=== PATIENT | female | born 1950 | race Caucasian/White ===

== ENCOUNTER 2023-06-20 18:18 | Emergency (ER) | payer MEDICARE, SELFPAY ==
--- NOTE | 2023-06-20 18:22 | ED.GENADULT ---
HPI - General Adult General Chief complaint: Ear Stated complaint: Left Jaw Pain/Ear Pain Time Seen by Provider: 06/20/23 19:01 Source: patient, RN notes reviewed and old records reviewed Mode of arrival: ambulatory Limitations: no limitations History of Present Illness HPI narrative: 72-year-old female presents to the [facility] with complaints of left jaw and ear pain. Denies any chest pain, shortness of breath. Patient states that she lays on her left side, uses CPAP. States she has had this before head normally massage makes it better. Had taken diclofenac today. States yesterday she took ibuprofen Tried calling her dental provider who is not open today Patient denies any chest pain, shortness of breath. No radiation of pain, localized to anterior left ear, TMJ Onset (ago): day(s) (2 nights) Related Data Home Medications Medication Instructions Recorded Confirmed amlodipine 10 mg tablet 10 mg DIRECTED 06/20/23 06/20/23 duloxetine 60 mg capsule,delayed 60 mg PO DIRECTED 06/20/23 06/20/23 release lisinopril 40 mg tablet 40 mg DIRECTED 06/20/23 06/20/23 meloxicam 15 mg tablet 15 mg DIRECTED 06/20/23 06/20/23 montelukast 10 mg tablet 10 mg DIRECTED 06/20/23 06/20/23 Allergies Allergy/AdvReac Type Severity Reaction Status Date / Time No Known Allergies Allergy Verified 06/20/23 18:33 Review of Systems Review of Systems: All systems reviewed & are unremarkable except as noted in HPI and below Constitutional: Constitutional: Reports no additional constitutional complaints Eyes: Eyes: Reports no additional eye complaints ENT: Reports as per HPI and Reports other (left TMJ) Cardiovascular: Cardiovascular: Reports no additional cardiovascular complaints, Denies chest pain and Denies dyspnea Respiratory: Respiratory: Reports no additional respiratory complaints, Denies chest congestion, Denies cough and Denies dyspnea Gastrointestinal: Gastrointestinal: Reports no additional gastrointestinal complaints, Denies abdominal pain, Denies nausea and Denies vomiting Musculoskeletal: Musculoskeletal: Reports no additional musculoskeletal complaints Integumentary/Breasts: Skin/Breast: Reports system reviewed and no additional complaints, except as docu Neurologic: Reports system reviewed and no additional complaints, except as documented Psychiatric: Psychiatric: Reports no additional psychiatric complaints Allergic/Immunologic: Allergic/Immunologic: Reports no additional allergic/immunologic complaints PMFSH Comments At the time of my signature, I reviewed and agree with the nursing past medical, surgical, social, and family history. There is no relevant family history pertinent to the patient complaint. Exam Const: General: cooperative, healthy appearing, comfortable, no acute distress, well developed, alert and well nourished Nutritional Appearance: well nourished Orientation/consciousness: patient oriented x3 Limitations: no limitations HENMT: Head: normal to inspection Ears: hearing grossly normal bilaterally, external ears normal, EAC's normal and TM abnormal wth effusion serous bilateral Face/Nose/Sinus: Normal external nose present, Normal nares present, Normal nasal mucous membranes and turbinates present, normal facial exam and face symmetric Face and sinus: normal facial exam, sinuses nontender, face symmetric and no erythema Mouth: Yes Normal oral and palatal mucosa present, Yes lip normal, Yes tongue normal, Yes oropharynx normal, Yes moist mucous membranes and Yes abnormal TMJ (Left, tenderness to palpation, clicking with opening and closing) Teeth and gingiva: dentition normal and gingiva normal Throat: posterior oropharynx normal, uvula midline and no uvular edema Eyes: General: appearance normal, both eyes and all related structures Alignment and Position: alignment normal Periorbital: periorbital findings normal Pupils: Equal, round and reactive pupils present EOM: EOMs intact bila
[2023-06-20 18:34] VITALS: BP 155/85; PULSE 105; RESP 18; TEMP 37.5; O2SAT 99
== END 2023-06-20 19:15 | disposition home or self-care (01) ==
PROVIDERS: Emergency Provider Nurse Practitioner; PCP Internal Medicine
DX: M26.602 Left temporomandibular joint disorder, unspecified (principal); I10 Essential (primary) hypertension; J45.909 Unspecified asthma, uncomplicated; G47.33 Obstructive sleep apnea (adult) (pediatric)
CPT/HCPCS: 99213; G0463

== ENCOUNTER 2023-11-06 13:51 | Outpatient (CLI) | payer MEDICARE, SELFPAY ==
[2023-11-06 15:22] LABS: Urine Cotinine NEGATIVE
[2023-11-06 15:27] LABS: Albumin Level 4.3 g/dL (3.5-5.1); Anion Gap 10 mmol/L (4-12); Blood Urea Nitrogen 17 mg/dL (7-17); Calcium 9.8 mg/dL (8.4-10.2); Carbon Dioxide 30 mmol/L (22-30); Chloride 99 mmol/L (98-107); Estimated Glomerular Filt Rate > 60; Glucose 91 mg/dL (65-110); Potassium 4.4 mmol/L (3.4-5.0); Sodium 139 mmol/L (137-145)
[2023-11-06 15:30] LABS: Hemoglobin A1C 5.3 % (<5.7)
[2023-11-06 15:44] LABS: Basophils Absolute Auto 0.1 K/mm3 (0.0-0.1); Basophils Percent Auto 1.7 % (0.2-1.2); Eosinophils Absolute Auto 0.5 K/mm3 (0-0.3); Eosinophils Percent Auto 5.7 % (0-4.4); Hematocrit 44.3 % (37.0-47.0); Hemoglobin 14.6 g/dL (12.0-15.0); Immature Granulocyte Absolute 0.02 K/mm3 (0.00-0.031); Immature Granulocyte Percent A 0.2 % (0-0.5); Lymphocytes Absolute Auto 1.96 K/mm3 (0.9-3.2); Lymphocytes Percent Auto 24.3 % (18.3-44.2); Mean Corpuscular Hemoglobin 32.1 pg (26-34); Mean Corpuscular Volume 97.4 fl (80-100); Mean Platelet Volume 10.9 fl (7.4-10.4); Monocytes Absolute Auto 0.7 K/mm3 (0.1-0.6); Monocytes Percent Auto 9.2 % (2.6-8.5); Neutrophils Absolute Auto 4.7 K/mm3 (1.3-6.7); Neutrophils Percent Auto 58.9 % (45.5-73.1); Platelet Count Result 279 k/mm3 (150-375); Red Blood Count 4.55 M/mm3 (4.2-5.4); Red Cell Distribution Width 13.1 % (11.5-14.5); White Blood Count 8.1 K/mm3 (4.5-10.0)
== END 2023-11-06 13:52 | disposition home or self-care (01) ==
PROVIDERS: PCP Internal Medicine; Visit Provider Orthopaedic Surgery
DX: Z01.818 Encounter for other preprocedural examination (principal); M17.12 Unilateral primary osteoarthritis, left knee
CPT/HCPCS: 80048; 80307; 82040; 83036; 85025; 87081

== ENCOUNTER 2023-11-14 08:02 | Outpatient (CLI) | payer MEDICARE, SELFPAY ==
--- NOTE | ~2023-11-14 | NM_ITS ---
EXAMINATION: NM tj stress w perfusion DATE: 11/14/2023 10:00 INDICATION: Preprocedural cardiac exam TECHNIQUE: Rest images were obtained following intravenous administration of 9.7 mCi Tc99m tetrofosmi n (Myoview). The patient was infused intravenously with Lexiscan (Regadenoson). Then, 31.8 mCi Tc99m tetrofosmin (Myoview) was administered intravenously, and stress images were obtained. Data was recon structed into short axis and horizontal and vertical long axis SPECT images. Gated SPECT images were also obtained. COMPARISON: None. FINDINGS: There is no definite reversible or fixed perfusion abnormality to suggest ischemia or infar ction. There is normal left ventricular chamber size, wall motion and ejection fraction. Left ventr icular ejection fraction measures >70%. IMPRESSION: 1. Normal myocardial perfusion at rest and during stress. 2. Left ventricular ejection fraction measuring >70%. Reviewed, dictated and finalized at location A.
--- NOTE | 2023-11-14 08:09 | EST_ITS ---
Patient Info Name: Jenifer Cain Age: 73 years : 1950 Gender: Female Ht: 67 in Wt: 241 lbs BSA: 2.32 m2 Exam Date: 11/14/2023 8:57 AM Exam Location: Echo Lab Patient Status: Outpatient Admit Date: 11/14/2023 Staff Ordering Physician: Tristin Miranda DO Attending Provider: Tristin Miranda DO Exercise Technologist: Susana Temple RDCS Exercise Physician: Tristin Miranda DO Exam Type: CA stress tj w NM Study Info Indications Z01.810 - Encounter for preprocedural cardiovascular examination A regadenoson stress test was performed. Summary 1. 1. Negative lexiscan stress test for ischemic ST changes by ECG criteria. 2. 2. Stable hemodynamics throughout the test. 3. 3. Nuclear scan to follow and will be reported separately. Please correlate with it. 4. 4. Patient informed of the above results. Protocol: Lexiscan Stress ECG Details Stage: REST Duration (min): 1 min : 56 sec HR (bpm): 81 SBP (mmHg): 127 DBP (mmHg): 80 Stage: REST Duration (min): 7 min : 34 sec HR (bpm): 84 SBP (mmHg): 127 DBP (mmHg): 80 Stage: STAGE 1 Duration (min): 1 min : 0 sec HR (bpm): 101 SBP (mmHg): 139 DBP (mmHg): 80 Stage: RECOVERY Duration (min): 1 min : 0 sec HR (bpm): 100 SBP (mmHg): 139 DBP (mmHg): 80 Stage: RECOVERY Duration (min): 2 min : 0 sec HR (bpm): 96 SBP (mmHg): 139 DBP (mmHg): 80 Stage: RECOVERY Duration (min): 3 min : 0 sec HR (bpm): 80 SBP (mmHg): 112 DBP (mmHg): 93 Stage: RECOVERY Duration (min): 3 min : 46 sec HR (bpm): 84 SBP (mmHg): 112 DBP (mmHg): 93 Rest HR: 84 bpm Peak HR: 104 bpm Rest Sys BP: 127 mmHg Peak Sys BP: 139 mmHg Max Pred HR: 148 bpm % Max Pred HR: 70 % Target HR: 126 bpm Max RPP: 14,456 bpm*mmHg Termination Reason: Completed protocol Cardiac Symptoms: Shortness of breath Total Time: 1 min : 0 sec Rest Khoury BP: 80 mmHg Peak Khoury BP: 80 mmHg Total Dose: 0.4 mg Resting ECG Sinus rhythm with intermittent PVC's. Stress ECG No ST changes. Arrhythmias None. Report Signatures
== END 2023-11-14 08:03 | disposition home or self-care (01) ==
PROVIDERS: PCP Internal Medicine; Visit Provider Internal Medicine Cardiovascular Disease
DX: Z01.810 Encounter for preprocedural cardiovascular examination (principal)
CPT/HCPCS: 78452; 93017; A9502; J2785

== ENCOUNTER 2023-11-27 01:28 | Day surgery (SDC) | payer MEDICARE, SELFPAY ==
[2023-11-06 14:01] VITALS: BMI 38.0
--- NOTE | 2023-11-06 14:27 | PC.NURSE ---
Report to the Outpatient Waiting Room, entrance under the green pavilion located off [facility], at time __6 AM on date _11/27/23 . Planned Procedure Time: _7:30 AM .? Time changes happen often and if your time is changed the preop area will call you the afternoon before. - You and your visitor will be asked to self-screen and do not enter if you have any COVID symptoms. Please call surgeon if you need to reschedule. - A mask is optional within the hospital at this time. Patients may have clear liquids (water, carbonated beverages, clear teas, apple juice) until 3 hours prior to surgery( 4:30 AM) with a maximum of 20 ounces. - No food from midnight until time of surgery and no smoking - Infants may have breast milk until 4 hours before surgery, infant formula 6 hours prior to surgery. - Children will be allowed to drink immediately following surgery.? If applicable, please bring a bottle or sippy cup to assist with drinking. Juice, water, soda, and popsicles are readily available.? For infants on formula, please bring formula the day of surgery.? Pacifiers are allowed. Take only the following medications with a SIP of water on the morning of surgery: ___AMLODIPINE,DULOXETINE DO NOT STOP ANY OF YOUR OTHER PRESCRIPTION MEDICATIONS PRIOR TO SURGERY EXCEPT THE FOLLOWING Medications to discontinue per physician __HOLD IBUPROFEN 7 DAYS PRE OP PER DR MCNEIL .LAST DOSE 11/19/23__.MAY TAKE TYLENOL IF NEEDED FOR PAIN. HOLD ALL VITAMINS 3 DAYS PRE OP.LAST DOSE 11/23/23 Please no make-up, nail qatari, hairspray, perfume, deodorant, or body powder the day of surgery.? No jewelry (including any body piercings) or valuables the day of surgery, leave them at home.? Please take a shower or bath the night before, or the morning of, surgery with an antibacterial soap.? Wear comfortable, loose fitting clothing.? Children are encouraged to wear pajamas. - Jewelry must be removed prior to entering the operating room.? Rings and piercings that are not removed may be cut off. - The hospital will not accept responsibility for valuables.? - Please leave all valuables, including medications, at home the day of surgery. If you are going home after surgery, a licensed refrigerated national truck driver must drive you home.? - NO public transportation without another adult if you receive anesthesia. - We recommend that an adult stay with you for 24 hours following discharge. - We also recommend that you do not drive, make important decision, drink alcoholic beverages, or take any drugs that were not prescribed by your health care provider for at least 24 hours after your discharge colby Follow any additional instructions given to you from your surgeon. VERBAL AND WRITTEN instructions given to _PATIENT and asked if any additional questions and then verbalized understanding. Patient advised to call surgeon office or pre surgery nurse liaison [phone] if any additional questions.
[2023-11-06 14:47] VITALS: BP 128/80; PULSE 76; RESP 18; TEMP 36.9; O2SAT 98
--- NOTE | 2023-11-26 12:36 | PM.IMHP ---
H&P: HPI History of Present Illness Date/Time: 11/26/23 12:36 Chief Complaint: DJD left knee Narrative: 73-year-old female patient of Dr. Decker who presents today for a left total knee arthroplasty. Patient has eyvf-qx-shmj osteoarthritis in medial compartment left knee. She has been having symptoms for several years. She has been treating this nonsurgically with uoha-cul-htofyqp anti-inflammatories, ibuprofen. As well as cortisone injections. Last injection was July 08 of this year which gave her minimal improvement of her symptoms. Patient feels this point she is ready to proceed with total knee arthroplasty rather than continue nonsurgical treatment. Review of Systems Review of Systems: All systems reviewed & are unremarkable except as noted in HPI and below PMFSH Past Medical History Medical History (Updated 11/26/23 @ 12:45 by ISA Ruffin) Asthma Depression Hypertension Surgical History Surgical History History of hysterectomy Family History Family History Sibling Heart disease Acute myocardial infarction Alcoholism Cancer Father Heart disease Mother , NATURAL CAUSES No problems noted. Social History Social History Smoking status: Never smoker Second hand tobacco smoke exposure: No Additional smoking assessment comments: DENIES ANY FORM OF TOBACCO USE Alcohol intake: current Substance use: never Substance use type: does not use Do You Feel Safe in your Home?: Yes Lack of Transportation: No Lack of Food: Never True Current Housing: I Have Housing Concerned About Future Housing: No Difficulty Paying Gas/Electric Bills: No Difficulty Paying for Meds: No Currently Unemployed: No Education: Trade/Vocational Certificate Difficulty w/ Childcare or Family Care: No Living arrangements: with family Occupation/Education: retired 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 Gender identity (if verbalized by the patient): Female Spiritual care concerns: No Meds Home Medications and Allergies Home Medications Medication Instructions Recorded Confirmed Type amlodipine 10 mg tablet 10 mg PO DIRECTED 06/20/23 11/06/23 History duloxetine 60 mg capsule,delayed 60 mg PO DIRECTED 06/20/23 11/06/23 History release lisinopril 40 mg tablet 40 mg PO DIRECTED 06/20/23 11/06/23 History montelukast 10 mg tablet 10 mg PO DAILY 07/09/23 11/06/23 History vit C 250 mg-vit E 200 unit-zinc 1 cap PO DAILY 07/09/23 11/06/23 History ox 12.5 iw-lfkkkc-hbcznq-zeax capsule (ICaps AREDS2) ibuprofen 800 mg tablet 800 mg PO Q6H PRN Pain 11/06/23 11/06/23 History Allergies Allergy/AdvReac Type Severity Reaction Status Date / Time amoxicillin AdvReac Intermediate Rash Verified 11/06/23 14:03 clavulanic acid AdvReac Intermediate Rash Verified 11/06/23 14:03 Exam Narrative: 73-year-old female alert pleasant. She is 5 ft 7 and 242 lb BMI is 37.9. She has a trace effusion in the left knee. Range of motion is from 0-125 degrees. Hip range of motion is full without discomfort, negative Stinchfield maneuver. She has normal quad strength. Moderate to severe tenderness over the medial joint line. Mild pain with patellofemoral grind. Normal stability in the knee. 2+ dorsalis pedis pulse palpable. Normal sensation and no edema in the left lower extremity. Resp: Auscultation: clear to auscultation bilaterally Cardio: Rate: regular rate Rhythm: regular rhythm Assessment and Plan Assessment and plan (1) Left knee DJD: Code(s): M17.12 - Unilateral primary osteoarthritis, left knee Status: Acute Assessment and Plan: 73-year-old female who has ixar-do-hsam medial compartment osteoarthritis of the left
[2023-11-27] VITALS (13 sets, daily range): BP systolic 112–149; BP diastolic 48–85; PULSE 68–106; RESP 14–18; TEMP 36.8–37.9; O2SAT 94–100
--- NOTE | ~2023-11-27 | XR_ITS ---
EXAMINATION: [id number] DATE: 11/27/2023 10:48 INDICATION: Postoperative evaluation following left total knee arthroplasty. TECHNIQUE: Anteroposterior and lateral views of the left knee were obtained. COMPARISON: None. FINDINGS: Left total knee arthroplasty without patellar resurfacing appears well seated and in near anatomic al ignment. No fractures identified. Expected postoperative subcutaneous and intra-articular gas. IMPRESSION: 1. Left total knee arthroplasty, negative for postoperative purposes. Reviewed, dictated and finalized at location B.
[2023-11-27] MEDS: ACETAMINOPHEN 500 MG TABLET 1000 MG PO (06:30)
[2023-11-27] MEDS: LACTATED RINGERS 1,000 ML 30 ML IV CONT ×2 (06:35→10:50)
[2023-11-27] MEDS: VANCOMYCIN 1,750 MG/NS 500 ML BAG 250 MG IVPB (06:49)
--- NOTE | 2023-11-27 07:07 | WPDANESEPPF ---
Anes - Initial Pre Proc Eval Procedure: Operation Date: 11/27/23 07:30 Proposed Procedures p Left Total Knee Arthroplasty - Thien Jama MD Date/Time: 11/27/23 07:07 Surgeon: Thien Jama MD Pre Op Diagnosis: oa left knee Patient Data Age: 73 Gender: F Height: 1.7 m Weight: 110.3 kg Last Vital Signs Temp 36.9 C 11/06/23 14:47 Pulse 76 11/06/23 14:47 Resp 18 11/06/23 14:47 BP 128/80 11/06/23 14:47 Pulse Ox 98 11/06/23 14:47 O2 Del Method Room Air 11/06/23 14:47 Allergies Allergy/AdvReac Type Severity Reaction Status Date / Time amoxicillin AdvReac Intermediate Rash Verified 11/27/23 06:32 clavulanic acid AdvReac Intermediate Rash Verified 11/27/23 06:32 Home Medications Medication Instructions Recorded Confirmed Type amlodipine 10 mg tablet 10 mg PO DIRECTED 06/20/23 11/27/23 History duloxetine 60 mg capsule,delayed 60 mg PO DIRECTED 06/20/23 11/27/23 History release lisinopril 40 mg tablet 40 mg PO DIRECTED 06/20/23 11/27/23 History montelukast 10 mg tablet 10 mg PO DAILY 07/09/23 11/27/23 History vit C 250 mg-vit E 200 unit-zinc 1 cap PO DAILY 07/09/23 11/27/23 History ox 12.5 nn-exgjjc-vvqmyl-zeax capsule (ICaps AREDS2) ibuprofen 800 mg tablet 800 mg PO Q6H PRN Pain 11/06/23 11/27/23 History Laboratory Tests 11/27/23 06:30 Blood Type Pending Antibody Screen Pending Patient hx anesthesia problems: post op nausea/vomiting Family hx anesthesia problems: none Results Review: All pre-operative results and documents have been reviewed as part of the pre-operative evaluation. [facility] Past Medical History Medical History Asthma Depression Hypertension Surgical History Surgical History History of hysterectomy Family History Family History Sibling Heart disease Acute myocardial infarction Alcoholism Cancer Father Heart disease Mother , NATURAL CAUSES No problems noted. Social History Social History Smoking status: Never smoker Second hand tobacco smoke exposure: No Additional smoking assessment comments: DENIES ANY FORM OF TOBACCO USE Alcohol intake: current Substance use: never Substance use type: does not use Do You Feel Safe in your Home?: Yes Lack of Transportation: No Lack of Food: Never True Current Housing: I Have Housing Concerned About Future Housing: No Difficulty Paying Gas/Electric Bills: No Difficulty Paying for Meds: No Currently Unemployed: No Education: Trade/Vocational Certificate Difficulty w/ Childcare or Family Care: No Living arrangements: with family Occupation/Education: retired 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 Informed Consent: The patient's anesthetic plan and its attendant risks and benefits were discussed with the patient/family/POA. Questions were solicited and answers provided to the satisfaction of the patient/family/POA.
--- NOTE | 2023-11-27 07:09 | WPDHPUPDATE1 ---
History and Physical Update Update Date/Time: 11/27/23 07:09 History and Physical has been reviewed, including an updated exam of the patient. There are NO changes in the patient's condition. Risks, benefits, and alternatives have been discussed and questions answered. Patient agrees to proceed with procedure.
[2023-11-27] MEDS: TRANEXAMIC ACID 1,000MG/ISO100 1,000 MG/100 ML BAG 200 MG IVPB (07:10)
--- NOTE | 2023-11-27 07:28 | WPDHPUPDATE1 ---
History and Physical Update Update Date/Time: 11/27/23 07:28 History and Physical has been reviewed, including an updated exam of the patient. There are NO changes in the patient's condition. Risks, benefits, and alternatives have been discussed and questions answered. Patient agrees to proceed with procedure. Also, she would like bessie shot in right knee today. Admit diagnosis OA Both Knees.
[2023-11-27] MEDS: ceFAZolin 2 GM/D5W 50 ML 2 GM/50 ML BAG IVPB ×2 (07:38→16:11)
[2023-11-27] MEDS: ceFAZolin SODIUM 1 GM VIAL 3 GM (07:58)
[2023-11-27] MEDS: SODIUM CHLORIDE 0.9% IV 37.7 ML, MORPHINE SULFATE INJ (*CRX) 2 MG, ROPivacaine HCL 1% 2... INFILTRATE (08:00)
[2023-11-27] MEDS: LIDOCAINE HCL 1% LOCAL INJ 20 ML VIAL 3 ML INFILTRATE (08:01)
[2023-11-27] MEDS: methylPREDNISolone ACETATE 80 MG/ML VIAL IM (08:02)
[2023-11-27] MEDS: ceFAZolin SODIUM 1 GM VIAL 2 GM IV PUSH (09:39)
[2023-11-27] MEDS: KETOROLAC 15 MG/ML VIAL (*BKC) IV PUSH ×3 (09:40→18:20)
[2023-11-27] MEDS: TRANEXAMIC ACID 1,000 MG/10 ML AMPUL 1000 MG IV PUSH (09:45)
[2023-11-27] MEDS: fentaNYL CITRATE INJ (*CRX) 100 MCG/2 ML VIAL 25 MCG IV PUSH ×8 (10:51→11:21)
--- NOTE | 2023-11-27 10:59 | PM.OP ---
Procedure Note - Brief Procedure Note - Brief Date of procedure: 11/27/23 oa left knee Procedure performed: Left total knee arthroplasty Surgeon: ISA Ruffin Findings: 73-year-old female underwent left total knee arthroplasty on 11/26. I was involved in the procedure including positioning the patient on the OR table and 1st assisting through the time of surgery. Total time spent was 3 hours
--- NOTE | 2023-11-27 11:19 | W.PM.PROC2 ---
Procedure Note - Detailed Date of Procedure 11/27/23 Pre-op Diagnosis oa left knee and right knee Post-op Diagnosis Same Procedure Performed 1. Cortisone injection right knee 2. Left total knee arthroplasty Surgeon Thien Jama MD Representative Personal Service [place] Anesthesia General Description of Procedure Patient was brought to the operating room and general anesthesia was administered. She received 2 g of Ancef weight based vancomycin 1 g of TXA preoperatively. The right knee was prepped with ChloraPrep and 80 mg of Depo-Medrol and 4 3 cc 1% lidocaine were injected. The left knee was prepped and draped in usual fashion. Limb was exsanguinated and tourniquet elevated to 300 mmHg. A 7 in longitudinal midline incision was used and a standard parapatellar arthrotomy utilized. Partial excision of infrapatellar fat pad performed. Quadriceps synovectomy performed. The patella had central wear and central patellar thickness was only 18 mm. Her patella was small in with as well as height and I felt that this was too thin to resurface safely because of risk of fracture of overly thin patella. A limited lateral facetectomy was performed. A guide marialuisa was inserted on femoral canal after aspiration of canal contents in using the 5 degree valgus cutting bushing 9 mm of bone removed the distal femur. Next the tibia was cut removing 2 mm of bone from low point medial tibial plateau. Meniscal remnants were excised the PCL recessed. Flexion gap was 8 mm medially 10 mm laterally at 90?. Alignment of the tibial cut was confirmed. The femoral sizing guide was applied the distal femur set at 3? of external rotation which matched Whitesides line. Posterior referencing pinholes were placed. The size 62.5 cutting block was applied AP and chamfer cuts were made. This gave us on trialing line to line fit medial to lateral and the proximal edge of the anterior flange rested on the anterior cortex. Bone quality was excellent throughout. The tibia was sized to a size 67 which fit line to line anteromedial to posterolateral at proper rotation. This was punched and we trialed with the 10 insert. The knee had no anterior posterior drawer at 90? and was considered to be a little bit too tight. The knee lacked 2 of extension with no play medially or laterally. Posterior femoral osteophyte was removed which was prominent on the medial side. we did not perform a posterior capsular release. Therefore an additional 1 or 1.5 mm of bone removed the tibial plateau. We confirmed that we had a perfectly flat surface and we punched the tibia deeper. On read trialing now we had 3 mm of anterior posterior drawer at 90? gravity flexion to 125 which I felt was primarily limited by her flash. Passive flexion 135 without lift-off. And the knee had full extension with negative bounce with 10 mm medial and 1 mm lateral opening and we had the same findings with the arthrotomy approximated with towel clips. Patellar tracking was central even with the tourniquet up. Lug holes were drilled through the femoral trial and step drill was used to make multiple perforations in the tibial plateau and distal femur for cement interdigitation. The bony surfaces thoroughly irrigated and dried. Using 2 batches of methylmethacrylate 1 with a gentamicin powder the cement was applied to the size 67 vanguard tibial tray and the size 62.5 left CR femoral component cement applied the tibial plateau pressurized tibial component fully seated cement applied the femur the femoral component fully seated the knee brought into extension with 11 mm 5 in 1 insert for cement pressurization. Tourniquet was released at 89 minutes. After cement hardening excess cement was sought for removed and hemostasis was achieved. We trialed again with the 10 insert which had the same range of motion stability findings discussed above. The real 10 was placed locked with a locking pin range of motion stability patellar tracking reconfir
[2023-11-27] MEDS: HYDROmorphone HCL INJ (*CRX) 1 MG/ML SYR IV PUSH (11:27)
--- NOTE | 2023-11-27 12:14 | ADMGEN ---
This patient, Jenifer Cain, was admitted to 3 [facility] Surg Room 320-01. Patient/family oriented to hospital policies and general routines including ID bracelet, bed and alarms, visiting hours, pain management, procedures, bathroom and other care routines, personal items, smoking policy, room service/diet, and visiting hours. Information on how to activate the Rapid Response Team has been discussed. Patient/Family are encouraged to report perceived risks to care and to ask questions if they do not understand what they are told or what they should do.
[2023-11-27] MEDS: oxyCODONE HCL (*CRX) 5 MG TAB IR PO (12:31)
[2023-11-27] MEDS: ACETAMINOPHEN 325 MG TABLET 650 MG PO ×3 (12:31→20:12)
--- NOTE | 2023-11-27 13:43 | PM.IMCN ---
Assessment and Plan Assessment and plan (1) Left knee DJD: Qualifiers: Osteoarthritis type: primary Qualified Code(s): M17.12 - Unilateral primary osteoarthritis, left knee Code(s): M17.12 - Unilateral primary osteoarthritis, left knee Status: Acute Assessment and Plan: Patient underwent a total left knee arthroplasty on 11/26. - primary management through the orthopedic team - ambulate with assistance and up to chair - use IS - neurovasc checks - see order for intervals - SCDs - analgesics and antiemetics p.r.n. - monitor labs in AM - CBC and BMP - bowel regimen: docusate/senna, polyethylene glycol - PT/OT - mild post-op fever (100.2F), started on Vanc IVPB, Ancef IVPB, and cefdinir PO. UA w/reflex added. (2) Primary localized osteoarthritis of both knees: Code(s): M17.0 - Bilateral primary osteoarthritis of knee Status: Acute Assessment and Plan: - underwent a right knee injection and total left knee arthroplasty today, 11/26 (3) Hypertension: Qualifiers: Hypertension type: primary hypertension Qualified Code(s): I10 - Essential (primary) hypertension Code(s): I10 - Essential (primary) hypertension Status: Chronic Assessment and Plan: - chronic, currently 117/60 - continue home medications: Amlodipine 10 mg daily continued, lisinopril 40 mg daily held - monitor Plan Patient's duloxetine and singular continued for her depression/asthma. Denies any current issues with these diagnoses. Continue home CPAP. Diet: Regular GI Prophylaxis: Not currently indicated DVT Prophylaxis: SCDs, start Eliquis tomorrow on 11/27 Lines: Peripheral Code Status: Full code HPI Date of Consult Consult date: 11/27/23 Requesting Physician: Thien Jama MD Primary Care Provider: Johnny DeckerMD Consult Narrative Reason for consult: Medical Management Narrative: 73 y/o F presents here for surgical management of her jmtf-cn-[id number] osteoarthritis of the XX with PMH of asthma, depression, and HTN. The patient presents here with bilateral knee pain for the past 3-4 years. She has failed conservative measures including azgl-orp-pvtqfxm anti-inflammatory (ibuprofen) and cortisone injections. Patient's last injection of the left knee was on 07/09/2023. She reported good relief that last for 2 weeks. Due to interference with walking/steps, she has elected to move forward with surgical management. She underwent a cortisone injection of the right knee and a left total knee arthroplasty today (11/26). Postoperatively she is reporting improved knee pain. Denies nausea or vomiting. Denies any recent changes to her past medical history or home medications. No further complaints at this time. Denies urinary symptoms or upper respiratory symptoms. Preop VS: 98.5? F, HR 76, RR 18, 128/80, and 98% on RA. Preop workup: No leukocytosis, no anemia, no significant electrolyte derangements, creatinine 0.8 and GFR >60, and A1c 5.3%. Review of Systems Review of Systems: All systems reviewed & are unremarkable except as noted in HPI and below PMFSH Past Medical History Medical History Asthma Depression Hypertension Sleep apnea Surgical History Surgical History History of hysterectomy Family History Family History Sibling Heart disease Acute myocardial infarction Alcoholism Cancer Father Heart disease Mother , NATURAL CAUSES No problems noted. Social History Social History Smoking status: Never smoker Second hand tobacco smoke exposure: No Additional smoking assessment comments: DENIES ANY FORM OF TOBACCO USE Alcohol intake: current Drinks p
[2023-11-27] MEDS: SENNA/DOCUSATE SODIUM TABLET 2 TAB PO (16:11)
[2023-11-27] MEDS: VANCOMYCIN 1,000 MG/NS 250 ML 1,000 MG/250 ML BAG 250 MG IVPB (18:20)
[2023-11-27] MEDS: FAMOTIDINE 20 MG TABLET PO (20:12)
[2023-11-28 00:55] VITALS: BP 117/61; PULSE 74; RESP 18; TEMP 36.7; O2SAT 97
[2023-11-28] MEDS: ceFAZolin 2 GM/D5W 50 ML 2 GM/50 ML BAG IVPB ×2 (01:00→09:24)
[2023-11-28] MEDS: ACETAMINOPHEN 325 MG TABLET 650 MG PO ×3 (01:06→12:16)
[2023-11-28 02:11] VITALS: PULSE 63; O2SAT 97
--- NOTE | 2023-11-28 02:45 | PC.NURSE ---
PCT marked urine sample as collected but did not send said specimen to lab. UA reordered
[2023-11-28 05:09] VITALS: BP 114/71; PULSE 82; RESP 16; TEMP 36.2; O2SAT 96
[2023-11-28] MEDS: VANCOMYCIN 1,000 MG/NS 250 ML 1,000 MG/250 ML BAG 250 MG IVPB (06:04)
[2023-11-28 06:35] LABS: Basophils Percent Auto 0.2 % (0.2-1.2); Hematocrit 36.8 % (37.0-47.0); Hemoglobin 11.7 g/dL (12.0-15.0); Immature Granulocyte Absolute 0.09 K/mm3 (0.00-0.031); Immature Granulocyte Percent A 0.6 % (0-0.5); Lymphocytes Absolute Auto 0.99 K/mm3 (0.9-3.2); Lymphocytes Percent Auto 6.4 % (18.3-44.2); Mean Corpuscular HGB Conc 31.8 g/dl (32-36); Mean Corpuscular Hemoglobin 31.3 pg (26-34); Mean Corpuscular Volume 98.4 fl (80-100); Mean Platelet Volume 10.4 fl (7.4-10.4); Monocytes Absolute Auto 1.6 K/mm3 (0.1-0.6); Monocytes Percent Auto 10.1 % (2.6-8.5); Neutrophils Absolute Auto 12.8 K/mm3 (1.3-6.7); Neutrophils Percent Auto 82.7 % (45.5-73.1); Platelet Count Result 210 k/mm3 (150-375); Red Blood Count 3.74 M/mm3 (4.2-5.4); Red Cell Distribution Width 13.6 % (11.5-14.5); White Blood Count 15.5 K/mm3 (4.5-10.0)
[2023-11-28 06:48] LABS: Anion Gap 8 mmol/L (4-12); Blood Urea Nitrogen 19 mg/dL (7-17); Calcium 8.8 mg/dL (8.4-10.2); Carbon Dioxide 29 mmol/L (22-30); Chloride 101 mmol/L (98-107); Estimated CRCL calculation 70 ml/min; Estimated Glomerular Filt Rate > 60; Glucose 119 mg/dL (65-110); Potassium 4.5 mmol/L (3.4-5.0); Sodium 138 mmol/L (137-145)
[2023-11-28 07:45] LABS: Add Urine Microscopic? NO; Appearance Urine Clear (Clear); Bilirubin Urine Negative (Negative); Blood Urine Negative (Negative); Color Urine Yellow (Yellow); Glucose Urine UA Negative (Negative); Ketones Urine Negative (Negative); Leukocyte Esterase Ur Negative LEU/UL (Negative); Nitrate Urine Negative (Negative); Protein Urine Negative (Negative); Urobilinogen Urine 0.2 mg/dL (<2.0); pH Urine 5.5 (5.0-9.0)
--- NOTE | 2023-11-28 08:36 | PM.PNORT ---
Subjective Subjective Date/Time Seen: 11/28/23 08:36 Interval history: Postop day 1 patient is alert. Pain is very well controlled. She has only been taking Tylenol overnight and not needing narcotics. She is afebrile vital signs are stable. Morning labs are noted. She did have a UA done this morning which was negative. Dressing is dry and intact. Neurovascularly she is intact. She is able do a straight leg raise in the bed this morning. She was up walking with physical therapy yesterday was comfortable. We will plan have the patient work with therapy today and once IV antibiotics have been completed she will be discharged to home. Objective Data Vital Signs Vital Signs: Vital Signs - 24 hr 11/27/23 10:50 11/27/23 11:20 11/27/23 11:05 Temperature 99.5 F Pulse Rate 98 101 H 106 H Respiratory Rate 14 14 14 Blood Pressure 149/77 H 125/85 131/78 Pulse Oximetry 99 100 100 Oxygen Delivery Simple Face Mask Room Air Simple Face Mask Oxygen Flow Rate 6 6 11/27/23 11:35 11/27/23 11:50 11/27/23 13:09 Temperature 100.2 F H Pulse Rate 104 H 98 Respiratory Rate 14 14 Blood Pressure 112/70 117/60 Pulse Oximetry 94 97 Oxygen Delivery Room Air Nasal Cannula Room Air Oxygen Flow Rate 2 11/27/23 13:26 11/27/23 14:14 11/27/23 11:53 Temperature 98.8 F Pulse Rate 82 Respiratory Rate 18 Blood Pressure 122/48 L Pulse Oximetry 100 Oxygen Delivery Room Air Room Air Oxygen Flow Rate 11/27/23 12:08 11/27/23 12:38 11/27/23 13:38 Temperature 99.1 F 98.6 F 98.6 F Pulse Rate 86 86 88 Respiratory Rate 18 18 18 Blood Pressure 139/75 147/59 H 134/64 Pulse Oximetry 97 97 95 Oxygen Delivery Oxygen Flow Rate 11/27/23 17:38 11/27/23 20:13 11/27/23 21:00 Temperature 98.6 F 98.5 F Pulse Rate 86 100 68 Respiratory Rate 18 18 Blood Pressure 140/62 115/75 Pulse Oximetry 97 96 98 Oxygen Delivery Autopap Oxygen Flow Rate 11/28/23 00:55 11/28/23 02:11 11/27/23 20:00 Temperature 98.1 F Pulse Rate 74 63 Respiratory Rate 18 Blood Pressure 117/61 Pulse Oximetry 97 97 Oxygen Delivery Autopap Room Air Oxygen Flow Rate 11/28/23 05:09 Temperature 97.1 F L Pulse Rate 82 Respiratory Rate 16 Blood Pressure 114/71 Pulse Oximetry 96 Oxygen Delivery Oxygen Flow Rate Intake/Output Intake/Output: Intake & Output 11/25/23 11/26/23 11/27/23 11/28/23 23:59 23:59 23:59 23:59 Intake Total 790 400 Balance 790 400 Meds/Results Medications: Active Medications Generic Name Dose Route Start Last Admin Trade Name Freq PRN Reason Stop Dose Admin Acetaminophen 650 mg 11/27/23 11:53 11/28/23 05:46 Acetaminophen 325 Mg Tablet PO Not Given Q4H [facility] Amlodipine Besylate 10 mg 11/28/23 09:00 Amlodipine Besylate 10 Mg Tablet PO DAILY [facility] Apixaban 2.5 mg 11/28/23 09:00 Apixaban 2.5 Mg Tablet PO 12/09/23 21:01 Q12HR [facility] Cefdinir 300 mg 11/28/23 09:00 Cefdinir 300 Mg Capsule PO Q12HR [facility] Celecoxib 200 mg 11/28/23 08:00 Celecoxib 200 Mg Capsule PO DAILY@0800 [facility] Diphenhydramine HCl 25 mg 11/27/23 11:53 Diphenhydramine Hcl Inj 50 Mg/Ml Vial IV PUSH Q6H PRN Itching Duloxetine HCl 60 mg 11/28/23 09:00 Duloxetine Hcl 60 Mg Capsule.Dr PO DAILY [facility] Famotidine 20 mg 11/27/23 21:00 11/27/23 20:12 Famotidine 20 Mg Tablet PO 20 mg Q12HR [facility] Administration Montelukast Sodium 10 mg 11/28/23 09:00 Montelukast Sodium 10 Mg Tablet PO DAILY [facility] Morphine Sulfate 2 mg 11/27/23 11:53 Morphine Sulfate (*Crx) 2 Mg/Ml Inj IV PUSH Q2H PRN Breakthrough Pain Rated 4-6 or NPO Naloxone HCl 0.1 mg 11/27/23 11:53 Naloxone Hcl 0.4 Mg/Ml Vial IV PUSH Q2M PRN Opiate Reversal Ondansetron HCl 4 mg 11/27/23 11:53 Ondansetron Inj 4 Mg/2 Ml Vial IV PUSH Q4H PRN Nausea And Vomiting Oxycodone HCl 5 mg 11/27/23 11:53 11/28/23 05:47 Oxy
--- NOTE | 2023-11-28 08:58 | PM.DS ---
DS: Admitting Diagnosis Discharge Date 11/27 Admitting Diagnosis Left knee DJD DS: Discharge Diagnosis Discharge Diagnosis (1) Left knee DJD: Qualifiers: Osteoarthritis type: primary Qualified Code(s): M17.12 - Unilateral primary osteoarthritis, left knee Code(s): M17.12 - Unilateral primary osteoarthritis, left knee Status: Acute DS: Summary Hospital Course Hospital Course: 73-year-old female who underwent left total knee arthroplasty on 11/26. Underwent the procedure without complications. Postoperatively she has been very comfortable. She has been afebrile vital signs are stable. Dressing is dry and intact. Neurovascularly she is intact. The morning of postop day 1 patient states she was only using Tylenol for pain control. She did walk with physical therapy the day of surgery was doing very well. She is on Eliquis for DVT prophylaxis. Patient is on scheduled Tylenol every 4 hours as well as oxycodone 5 mg. She is on Celebrex 200 mg a day. Patient will be discharged home on 11/27. She will go home with a 1 week course of Omnicef. She will also go home with Senokot and MiraLax. Patient was advised to keep leg elevated at home to prevent swelling but also do her exercises on a regular basis. She has outpatient therapy starting next week. Patient was advised any questions or concerns she is to call the office. Labs on the morning of postop day 1 were noted. Time Spent with Patient Time attestation: Total time spent providing and/or coordinating discharge services: DS: Data Data Completed and Pending Labs on day of discharge: Labs from last 24 hours 11/28/23 11/28/23 07:31 06:14 WBC 15.5 H RBC 3.74 L Hgb 11.7 L Hct 36.8 L MCV 98.4 MCH 31.3 MCHC 31.8 L RDW 13.6 Plt Count 210 MPV 10.4 Immature Gran % (Auto) 0.6 H Neut % (Auto) 82.7 H Lymph % (Auto) 6.4 L [place] % (Auto) 10.1 H Eos % (Auto) 0.0 Baso % (Auto) 0.2 Lymph # (Auto) 0.99 [place] # (Auto) 1.6 H Eos # (Auto) 0.0 Baso # (Auto) 0.0 Abs Immat Gran (auto) 0.09 H Absolute Neuts (auto) 12.8 H Absolute Nucleated RBC 0.000 Nucleated RBC % 0.0 Sodium 138 Potassium 4.5 Chloride 101 Carbon Dioxide 29 Anion Gap 8 BUN 19 H Creatinine 0.80 Estim Creat Clear Calc 70 Estimated GFR > 60 Glucose 119 H Calcium 8.8 Urine Color Yellow Urine Appearance Clear Urine pH 5.5 Ur Specific [place] 1.010 Urine Protein Negative Urine Glucose (UA) Negative Urine Ketones Negative Ur Blood (Man) Negative Urine Nitrate Negative Urine Bilirubin Negative Urine Urobilinogen 0.2 Leukocyte Esterase Rfl Negative Discharge Plan Discharge Patient Disposition: Home, Self-Care Discharge Instructions: JOSE RAFAEL MCNEIL M.D [facility] [address] [address] [address] [place] [address] POST-OPERATIVE DISCHARGE INSTRUCTIONS TOTAL KNEE ARTHROPLASTY 1. When resting, do not rest in the chair.When resting, lie on your back, with back flat on the couch or bed, with leg elevated above heart to minimize swelling. You may put a pillow under your head. . Significant swelling could indicate a blood clot and if this occurs call the office (or go to the ER) to have a venous ultrasound. Therefore, do not rest in a chair. 2. At least five times a day spend several minutes stretching your knee into flexion while sitting in the chair and also stretching your knee out straight The abilities to bend your knee fully and straighten your knee fully are two most important knee functions to focus on during your recovery. 3. It is ok to sit in chair to eat, use the toilet and receive a guest and to do your stretching exercises, but, sitting in a chair will cause your leg to swell. Therefore, avoid additional time sitting in the chair. and don't rest in the chair. 4. Wound Care: Nursing will give you an additional Mepilex dressing at the
[2023-11-28] MEDS: CEFDINIR 300 MG CAPSULE PO (09:21)
[2023-11-28] MEDS: CELECOXIB 200 MG CAPSULE PO (09:21)
[2023-11-28] MEDS: SENNA/DOCUSATE SODIUM TABLET 2 TAB PO (09:22)
[2023-11-28] MEDS: FAMOTIDINE 20 MG TABLET PO (09:22)
[2023-11-28] MEDS: DULoxetine HCL 60 MG CAPSULE.DR PO (09:22)
[2023-11-28] MEDS: APIXABAN 2.5 MG TABLET PO (09:22)
[2023-11-28] MEDS: MONTELUKAST SODIUM 10 MG TABLET PO (09:22)
[2023-11-28] MEDS: amLODIPine BESYLATE 10 MG TABLET PO (09:22)
[2023-11-28 09:38] VITALS: BP 118/61; PULSE 80; RESP 16; TEMP 36.3; O2SAT 97
== END 2023-11-28 13:10 | disposition home or self-care (01) ==
LOC: ANHSURGERY 06:05 → ANH3MEDSUR 12:06
PROVIDERS: Physician Assistant Surgical; Student in an Organized Health Care Education/Training Program; PCP Internal Medicine; Visit Provider Orthopaedic Surgery
PROC: (CPT 27447; principal; 2023-11-27 07:30)
DX: M17.12 Unilateral primary osteoarthritis, left knee (principal); I10 Essential (primary) hypertension; J45.909 Unspecified asthma, uncomplicated; F32.A Depression, unspecified; E66.9 Obesity, unspecified; Z68.37 Body mass index [BMI] 37.0-37.9, adult; Z79.1 Long term (current) use of non-steroidal anti-inflammatories (NSAID); Z98.890 Other specified postprocedural states; Z80.9 Family history of malignant neoplasm, unspecified; Z82.49 Family history of ischemic heart disease and other diseases of the circulatory system
CPT/HCPCS: 27447; 20610; 36415; 73560; 78452; 80048; 80307; 81003; 82040; 83036; 85025; 86850; 86900; 86901; 87081; 93017; 97110; 97116; 97161; 97165; 97530; 97535; A9270; A9502; C1713; C1776; J0171; J0690; J1010; J1100; J1170; J1885; J2270; J2405; J2704; J2785; J2795; J3010; J3370; J7120

== ENCOUNTER 2023-12-31 10:30 | Outpatient (RCR) | payer MEDICARE, SELFPAY ==
--- NOTE | 2023-12-03 10:42 | OPREHPOC ---
Outpatient Therapy Plan of Care This is a Multidisciplinary Plan of Care that may contain components documented by all disciplines (PT, OT, and ST.) PT Problem 1 PT Problem #1 Knowledge Deficit PT Goal 1 Goal / Goal Update 1. Patient will perform independent HEP Target Visit 4 PT Problem 2 PT Problem #2 Pain PT Goal 1 Goal / Goal Update 1. Pain no higher than 2/10 with all normal ADL's Target Visit 10 PT Problem 3 PT Problem #3 Impaired Functional ADLs PT Goal 1 Goal / Goal Update 1. Patient will be able to navigate all stairs at home with reciprocal pattern Target Visit 10 PT Problem 4 PT Problem #4 Impaired Range of Motion PT Goal 1 Goal / Goal Update 1. Improve knee flexion to 125 degrees for stair navigation 2. Improve knee extension to 0 degrees to normalize gait pattern Target Visit 10 PT Problem 5 PT Problem #5 Impaired Strength PT Goal 1 Goal / Goal Update 1. Improve L MMT to 5/5 in all planes to return to normal activities Target Visit 10
--- NOTE | 2023-12-03 10:42 | PTOPEVAL1 ---
Assessment and note entered by Ambreen Turner DPT Evaluation Information Assessment Status Evaluation Diagnosis m17.12 ICD-10 Condition Codes (PT) Pain in left knee M25.562,Weakness R53.1,Z47.1 Subjective Information Pt had L TKA on 11/27/23. Highest pain recently 8/ 10 and lowest 0/10. Pain worsens when she is not moving her knee. Using a walker all the time. No previous assistive device use. Pt has 7 stairs coming in her house (split level), unable to navigate with reciprocal pattern. Pt states she is not doing her normal cooking and cleaning. Is able to dress and bathe independently. Pt has not driven yet. Reports compliance with stretches every hour. Patient goal: improve flexibility and straightening, be comfortable walking Returns to MD 12/10/23. Reported Pain Level Pain Score 5: Self Report Assessment PT Clinical Summary The patient is s/p L TKA on 11/27/23. She presents with decreased range of motion (+5 to 98 actively) , decreased strength, gait impairments, and edema. These impairments are contributing to her current walker use and difficulty performing typical activities at home including navigating stairs reciprocally. She will highly benefit from therapy to address her impairments in order to reduce pain and restore full function. Plan of Care Interventions Electrical Stimulation,Gait Training,Hot Pack/Cold Pack,Manual Therapy,Neuro Re-education,Patient/ Caregiver Education,Therapeutic Activities, Therapeutic Exercise PT Services Indicated Yes Treatment Frequency and 2 times a week for 10 visits Duration These treatments will address the objective and functional deficits as defined above. The patient will be advanced safely and appropriately in order for the patient to progress towards his/her prior level of function. Additional exercises will be introduced and as well as a comprehensive home exercise program upon discharge, if needed, ?to ensure carryover of functional gains achieved in the clinic. This treatment plan has been reviewed and agreement upon by the patient.
--- NOTE | 2023-12-31 11:05 | OPREHPOC ---
Outpatient Therapy Plan of Care This is a Multidisciplinary Plan of Care that may contain components documented by all disciplines (PT, OT, and ST.) PT Problem 1 PT Problem #1 Knowledge Deficit PT Goal 1 Goal / Goal Update 1. Patient will perform independent HEP Target Visit 4 Progress Met PT Problem 2 PT Problem #2 Pain PT Goal 1 Goal / Goal Update 1. Pain no higher than 2/10 with all normal ADL's update 12/31/23 1. 6/10 Target Visit 10 Progress Partially Met PT Problem 3 PT Problem #3 Impaired Functional ADLs PT Goal 1 Goal / Goal Update 1. Patient will be able to navigate all stairs at home with reciprocal pattern update 12/31/23 1. difficulty at home but able to in clinic Target Visit 10 Progress Partially Met PT Problem 4 PT Problem #4 Impaired Range of Motion PT Goal 1 Goal / Goal Update 1. Improve knee flexion to 125 degrees for stair navigation 2. Improve knee extension to 0 degrees to normalize gait pattern update 12/31/23 1. 121 2. 1 Target Visit 10 Progress Partially Met PT Problem 5 PT Problem #5 Impaired Strength PT Goal 1 Goal / Goal Update 1. Improve L MMT to 5/5 in all planes to return to normal activities update 12/31/23 1. knee extension 4+/5 Target Visit 10 Progress Partially Met
--- NOTE | 2023-12-31 11:05 | PTOPPROG ---
Assessment and note entered by Ambreen Turner DPT Evaluation Information Assessment Status Progress Diagnosis m17.12 ICD-10 Condition Codes (PT) Pain in left knee M25.562,Weakness R53.1,Z47.1 Subjective Information Highest pain 6/10 in the last week, lowest 0/10. Feels improvements with therapy and things have gotten easier. Has been able to go to the grocery store and is betting navigating stairs, just reports continued fatigue. Has been able to start cooking and cleaning again, is driving. No walker use for several weeks. Returns to MD on 01/07/24. Assessment PT Clinical Summary The patient has made good progress in therapy and reports decreased pain and overall improved function including cooking, cleaning, and improvements navigating stairs. She presents with improved LE strength, ROM (+1 to 121), gait speed/ pattern, and reduced edema. Due to her progress but continued pain, difficulty with reciprocal stair pattern at home, and lack of full knee extension she will benefit from further therapy to return to prior level of function. Plan of Care Interventions Electrical Stimulation,Gait Training,Hot Pack/Cold Pack,Manual Therapy,Neuro Re-education,Patient/ Caregiver Education,Therapeutic Activities, Therapeutic Exercise PT Services Indicated Yes Treatment Frequency and 2 times a week for 4 visits Duration These treatments will address the objective and functional deficits as defined above. The patient will be advanced safely and appropriately in order for the patient to progress towards his/her prior level of function. Additional exercises will be introduced and as well as a comprehensive home exercise program upon discharge, if needed, ?to ensure carryover of functional gains achieved in the clinic. This treatment plan has been reviewed and agreement upon by the patient.
--- NOTE | 2024-01-27 14:03 | PTOPDC ---
Assessment and note entered by Ambreen Turner DPT Evaluation Information Assessment Status Discharge - Pt Not Present Diagnosis m17.12 ICD-10 Condition Codes (PT) Pain in left knee M25.562,Weakness R53.1,Z47.1 Subjective Information - Assessment PT Clinical Summary Patient has not returned to therapy after follow up with MD. Her case will be discharged this date. Plan of Care PT Services Indicated No
== END 2024-01-27 15:31 | disposition home or self-care (01) ==
LOC: ANHGOSHPT 10:30
PROVIDERS: PCP Internal Medicine; Visit Provider Orthopaedic Surgery
DX: M17.12 Unilateral primary osteoarthritis, left knee (principal); Z96.651 Presence of right artificial knee joint; Z47.1 Aftercare following joint replacement surgery
CPT/HCPCS: 97014; 97110; 97140; 97161; 97530; G0283

== ENCOUNTER 2024-10-21 11:48 | Outpatient (CLI) | payer MEDICARE, SELFPAY ==
--- OUTSIDE RECORDS SUMMARY | 2024-10-21 12:00 | XMS_ITS | Clinical Summary ---
Author Organization [facility] Address [address] [place] [address] Phone Care Team Providers Care Electronic Gluing Machine Operator Name Role Phone Johnny Decker MD Primary Care Provider Allergies Active Allergy Reactions Criticality Noted Date Comments Amoxicillin-Pot Clavulanate Rash 09/04/2023 Rosuvastatin Calcium Other (see Comments) 12/24 Reaction: severe muscle cramps Nylon Unknown 07/01/2016 fabric Pravastatin Other (see Comments) 06/25/2016 Reaction: muscle pain Medications lisinopril (PRINIVIL, ZESTRIL) 40 MG Tablet TAKE 1 TABLET BY MOUTH DAILY 90 Tablet 3 11/24/2023 Active amLODIPine (NORVASC) 10 MG Tablet TAKE 1 TABLET BY MOUTH DAILY 90 Tablet 3 05/05/2024 Active montelukast (SINGULAIR) 10 MG Tablet TAKE 1 TABLET BY MOUTH DAILY 90 Tablet 3 05/05/2024 Active DULoxetine (CYMBALTA) [address] Particles TAKE 1 CAPSULE BY MOUTH DAILY 90 Capsule 3 05/05/2024 Active Active Problems Problem Noted Date Diagnosed Date Skipped heart beats 09/04/2023 Morbid obesity 09/04/2023 Mild intermittent asthma without complication JERALD (obstructive sleep apnea) 11/28/2010 Essential (primary) hypertension 06/06/2010 Other hyperlipidemia 06/06/2010 Dysthymia 06/06/2010 Encounters Date Type Department Care Team Description 10/15/2024 8:00 AM CDT Office Visit [facility] - [facility] - [place] [address] [place] [address] Johnny Decker MD Pre-op evaluation (Primary Dx); Primary osteoarthritis of right knee; Essential (primary) hypertension; Other hyperlipidemia; Mild intermittent asthma without complication Discharge Disposition: Discharged to home or Selfcare 10/15/2024 [facility] [address] [place] [phone] Johnny Decker MD Labs Only 10/15/2024 Travel from Last 3 Months Immunizations Immunization Administration Dates Next Due Covid-19, Mrna, Lnp-s, Pf, 30 Mcg/0.3 Ml Dose (P fizer) 05/25/2020,05/02/2020 Influenza Vaccine greater than 3 yrs 12/23/2017 Influenza Vaccine, Quadrivalent, PF 01/26/2024,1 03/25/2020 Influenza, Quadrivalent, Adjuvanted 01/23/2023 Pneumococcal Vaccine - 13 Valent 01/23/2024,01/08 Pneumococcal conjugate PCV20 , polysaccharide [id number] conjugate, adjuvant, PF 01/28/2022 Family History Relation Name Status Comments Brother 1 Brother 2 Father Mother Social History Tobacco Use Types Packs/Day Years Used Date Smoking Tobacco: Never Passive Smoke Exposure: Never Smokeless Tobacco: Never Tobacco Cessation:Counseling Given: No Alcohol Use Standard Drinks/Week Comments Not Currently 0 (1 standard drink = 0.6 oz pur e alcohol) [facility] Utilities Answer Date Recorded In the past 12 months has [employer], gas, oil, or water [employer] threatened to shut off services in your home? No 04/10/2024 Social Connection and Isolation Panel Answer Date Recorded In a typical week, how many times do you talk on the phone with family, friends, or neighbors? More than three times a week 04/10/2024 How often do you get togethe r with friends or relatives? Once a week 04/10/2024 How often do you attend [facility] or sabianism services? Patient declined 04/10/2024 Do you belong to any clubs o r organizations such as yazidi groups, unions, fraternal or athletic groups, or school groups? No 04/10/2024 How often do you attend meet ings of the clubs or organizations you belong to? Patient declined 04/10/2024 Are you , , di vorced, , never , or living with a partner? 04/10/2024 AUDIT-C Answer Date Recorded Q1: How often do you have a drink containing alcohol? Monthly or less 04/10/2024 Q2: How many drinks containi ng alcohol do you have on a typical day when you are drinking? Patient does not drink Q3: How often do you have si x or more drinks on one occasion? Never 04/10/2024 Overall Financial Resource Strain (CARDIA) Answe r Date Recorded How hard is it for you to pa y for the very basics like food, housing, medical care, and heating? Not hard at all 04/10/2024 PHQ-2 Answer Date Recorded Total Score - Questions 1-9 0 05/2024 [facility] - Occupational Stress Questionnaire Answer Date Recorded Do you feel stress - tense, restless, nervous, or anxious, or unable to sleep at night because your mind is troubled all the time - these days? Rather much 04/10/2024 Exercise Vital Sign Answer Date Recorde d On average, how many days pe r week do you engage in moderate to strenuous exercise (like a brisk walk)? 2 days 04/10/2024 On average, how many minutes do you engage in exercise at this level? 40 min 04/10/2024 Hunger Vital Sign Answer Date Recorded Within the past 12 months, y ou worried that your food would run out before you got the money to buy more. Never true 04/10/19 25 Within the past 12 months, t he food you bought just didn't last and you didn't have money to get more. Never true 04/10/2024 PRAPARE - Transportation Answer Date Re corded In the past 12 months, has l ack of transportation kept you from medical appointments or from getting medications? No 03/2024 In the past 12 months, has l ack of transportation kept you from meetings, work, or from getting things needed for daily living? No 04/10/2024 Housing Stability Vital Sign Answer Berry e Recorded In the last 12 months, was t here a time when you were not able to pay the mortgage or rent on time? No 04/10/2024 In the past 12 months, how m any times have you moved where you were living? 0 04/10/2024 At any time in the past 12 m onths, were you homeless or living in a residential (including now)? No 04/10/2024 Education Answer Date Recorded What is the highest level of school you have completed or the highest degree you have received? Associate degree: occupational, technical, or vocational program 07/23/2022 Sexually Active Control Partners Comments Not Currently Comments No Sex and Gender Information Value Date Recorded Sex Assigned at Not on file Legal Sex Female 8:09 PM CDT Gender Identity Not on file Sexual Orientation Not on file Last Filed Vital Signs Vital Sign Reading Time Taken Comments Blood Pressure 108/82 10/15/2024 7:49 AM CDT Pulse 60 10/15/2024 7:49 AM CDT Temperature 36.3 C (97.4 F) 10/15/2024 7:49 AM CDT Respiratory Rate 12 10/15/2024 7:49 AM CDT Oxygen Saturation 96% 10/15/2024 7:49 AM CDT Inhaled Oxygen Concentration - - Weight 109.8 kg (242 lb) 10/15/2024 7:49 AM CDT Height 170.2 cm (5' 7) 04/12/2024 9:43 AM FURNACE FEEDER Body Mass Index 37.9 04/12/2024 9:43 AM FURNACE FEEDER Plan of Treatment Upcoming Encounters Date Type Department Care Team (Late st Contact Info) Description 04/18/2025 8:00 AM FURNACE FEEDER Office Visit [facility] - [place] [address] [place] [phone] Johnny Decker MD [address] [place] [address] Health Maintenance Due Date Last Done Comments DEXA Bone Density 1950 Hepatitis C Virus (HCV) Screening 1950 TdaP Immunization 1950 Cologuard 10/07/1996 Colonoscopy 10/07/1996 Immunochemical Fecal Occult Blood 10/07/1996 Respiratory Syncytial Virus (RSV) Immunization (Adult) (1 - Risk 60-74 years 1-dose series) 2011 Mammogram 08/08/2022 08/08/2021, 07/23/2010 SARS-COV-2 Immunization ( season) 2023 07/12/2022, 11/19/2021, 06/25/2021, Additional history exists Influenza Immunization (#1) 11/08/202401/08, 01/23/2023, 11/19/2021, Additional history exists Pneumococcal Immunization (50+ years) Completed 01/23/2024, 01/28/2022, 01/23/2021 Pneumococcal Immunization Combined Discontinued 01/23/2024, 01/28/2022, 01/23/2021 Colorectal Cancer Screening Discontinued Hepatitis B Immunization Aged Out No longer eligible based on patient's age to complete this topic Human Papillomavirus (HPV) Immunization Aged Out No longer eligible based on patient's age to complete this topic Meningococcal Immunization (ACWY) Aged Out No longer eligible based on patient's age to complete this topic Rotavirus Immunization Aged Out No lo nger eligible based on patient's age to complete this topic Zoster Immunization Discontinued Procedures Procedure Name Priority Date/Time Associated Diagnosis Comments ORTHOPEDIC SURGERY CONSULT 10/06/2024 12:00 AM CDT JULEE SCREENING BILATERAL DIGITAL W CAD W MODESTO Routine 08/08/2021 7:23 AM CDT Breast cancer screening by mammogram from Last 3 Months or Most Recently Relevant to Health Maintenance Results * ORTHOPEDIC SURGERY CONSULT (10/06/2024 12:00 AM CDT) 10/06/2024 us Provider Scan GENERIC SCAN ORDERS CONSULT Princess baires Result SCAN * JULEE SCREENING BILATERAL DIGITAL W CAD W MODESTO (08/08/2021 7:23 AM CDT) Anatomical Region Laterality Modality breast Bilateral Mammography 08/08/2021 6:44 AM CDT Narrative 08/08/2021 5:21 PM CDT - JULEE SCREENING BILATERAL DIGITAL W CAD W [place]DE[place]O BILATERAL DIGITAL SCREENING MAMMOGRAM 3D/2D WITH CAD WITH MEDIOLATERAL OBLIQUE CRANIOCAUDAL: 08/08/2021 The study was acquired using digital technology and interpreted from soft copy. Current study was also evaluated with ICAD version 7.2. 2D digital mammographic views, as well as 3D digital tomosynthesis were performed in the CC and MLO projections. CLINICAL: Routine screening. Patient has no complaints. No personal history of cancer. No family history of breast cancer. COMPARISONS: Comparison is made to exam dated: 07/23/2010 [facility]. BREAST TISSUE:There are scattered fibroglandular densities in both breasts. FINDINGS: No significant masses, calcifications, or other findings are seen in either breast. There has been no significant interval change. IMPRESSION: BI-RAD 1 NEGATIVE There is no mammographic evidence of malignancy. A 1 year screening mammogram is recommended. A letter will be sent to the patient with these results. The patient will be entered into a reminder system with a target due date of 1 year for her next screening exam. Electronically signed by: Bridger martines/keo:08/08/2021 16:12:28 Newsperson(s): Shila Ortiz)(M), [facility] letter sent: Normal Exam Reading location: [facility] BI-RADS: 1 Negative Procedure Note Bridger Lopez MD - 08/08/2021 - JULEE SCREENING BILATERAL DIGITAL W CAD W MODE[place]O BILATERAL DIGITAL SCREENING MAMMOGRAM 3D/2D WITH CAD WITH MEDIOLATERAL OBLIQUE CRANIOCAUDAL: 08/08/2021 The study was acquired using digital technology and interpreted from soft copy. Current study was also evaluated with ICAD version 7.2. 2D digital mammographic views, as well as 3D digital tomosynthesis were performed in the CC and MLO projections. CLINICAL: Routine screening. Patient has no complaints. No personal history of cancer. No family history of breast cancer. COMPARISONS: Comparison is made to exam dated: 07/23/2010 [facility]. BREAST TISSUE:There are scattered fibroglandular densities in both breasts. FINDINGS: No significant masses, calcifications, or other findings are seen in either breast. There has been no significant interval change. IMPRESSION: BI-RAD 1 NEGATIVE There is no mammographic evidence of malignancy. A 1 year screening mammogram is recommended. A letter will be sent to the patient with these results. The patient will be entered into a reminder system with a target due date of 1 year for her next screening exam. Electronically signed by: Bridger martines/keo:08/08/2021 16:12:28 Newsperson(s): Shila Ortiz)(M), [facility]: Normal Exam Reading location: [facility] BI-RADS: 1 Negative Johnny Decker MD IMG MAMMO ORDERABLES Final Result from Last 3 Months or Most Recently Relevant to Health Maintenance Insurance MEDICARE C [facility] Care Teams Electronic Gluing Machine Operator Relationship Specialty Start Date End Date Johnny Decker MD PCP - General Internal Medicine 10/11/19
--- OUTSIDE RECORDS SUMMARY | 2024-10-21 12:00 | XMS_ITS | Encounter Summary ---
Author Organization [facility] Address [address] [place] [address] Phone Care Team Providers Care Fleet Coordinator Name Role Phone Johnny Decker MD Primary Care Provider [phone] Reason for Visit * Reason Onset Date Comments Labs Only 10/15/2024 Encounter Details Date Type Department Care Team (Late st Contact Info) Description 10/15/2024 Telephone [facility] [address] [place] [address] Johnny Decker MD [address] [place] [address] Labs Only Social History Tobacco Use Types Packs/Day Years Used Date Smoking Tobacco: Never Passive Smoke Exposure: Never Smokeless Tobacco: Never Alcohol Use Standard Drinks/Week Comments Not Currently 0 (1 standard drink = 0.6 oz pur e alcohol) [facility] Utilities Answer Date Recorded In the past 12 months has [employer], gas, oil, or water company threatened to shut off services in your home? No 04/10/2024 Social Connection and Isolation Panel Answer Date Recorded In a typical week, how many times do you talk on the phone with family, friends, or neighbors? More than three times a week 04/10/2024 How often do you get togethe r with friends or relatives? Once a week 04/10/2024 How often do you attend [facility] or yazidism services? Patient declined 04/10/2024 Do you belong to any clubs o r organizations such as mormonism groups, unions, fraternal or athletic groups, or [...] Total Score - Questions 1-9 0 05/2024 [facility] - Occupational Stress [...] any time in the past 12 m ont, were you homeless or living in a [place] health [place] facility (including now)? No 04/10/2024 Education Answer Date [...] on file Sexual Orientation Not on file documented as of this encounter Miscellaneous Notes * Telephone Encounter - Kristi Hernandez RN - 10/15/2024 8:41 AM CDT Situation: Labs Background: Patient contacting PCP office. Assessment: Patient returning phone call regarding labs. There was no recent note regarding call. Called office backline and will confirm with patient that labs were drawn at [facility]. Recommendation: Patient confirmed labs were drawn at [facility]. Encounter routed to [facility] to notify. documented in this encounter Plan of Treatment Upcoming Encounters Date Type Department Care Team (Late st Contact Info) Description 04/18/2025 8:00 AM BALLING MACHINE OPERATOR Office Visit [facility] - [place] Care - [place] [address] [place] [phone] Johnny Decker MD [address] [place] [address] documented as of this encounter Visit Diagnoses Not on filedocumented in this encounter Additional Health Concerns Assessment Noted Time PHQ-9 Depression Total Score: 0 04/12/19 25 9:45 AM BALLING MACHINE OPERATOR documented as of this encounter Care Teams Fleet Coordinator Relationship Specialty Start Date End Date Johnny Decker MD PCP - General Internal Medicine 10/11/19 documented as of this encounter
--- OUTSIDE RECORDS SUMMARY | 2024-10-21 12:00 | XMS_ITS | Encounter Summary ---
Author Organization [facility] Address [address] [place] [address] Phone Care Team Providers Care Tip Length Checker Name Role Phone Johnny Decker MD Primary Care Provider [phone] Reason for Visit * Reason Comments Medication Refill Encounter Details Date Type Department Care Team (Late st Contact Info) Description 06/05/2023 Refill [facility] - [place] [address] [place] [address] Johnny Decker MD [address] [place] [address] Medication Refill Social History Tobacco Use Types Packs/Day Years Used Date Smoking Tobacco: Never Passive Smoke Exposure: Never Smokeless Tobacco: Never Alcohol Use Standard Drinks/Week Comments Not Currently 0 (1 standard drink = 0.6 oz pur e alcohol) PHQ-2 Answer Date Recorded Total Score - Questions 1-9 0 01/08 Education Answer Date Recorded What is the [...] encounter Miscellaneous Notes * Telephone Encounter - Maria C Haskins RN - 06/05/2023 8:00 AM CDT Medication failed the protocol, provider to review and approve the medication order if appropriate. Requested Prescriptions Pending Prescriptions Disp Refills lisinopril (PRINIVIL, ZESTRIL) 40 MG Tablet [Pharmacy Med Name: Lisinopril 40 MG Oral Tablet] 90 Tablet 3 Sig: TAKE 1 TABLET BY MOUTH DAILY JAVED Inhibitors Protocol Failed - 06/05/2023 3:57 AM Failed - Serum potassium on record in past 12 months No results found for: POTASSIUM, POCTK Failed - GFR on record in past 12 months No results found for: GFRNA Passed - Blood pressure on record in past 12 months Clinician-entered: BP Readings from Last 3 Encounters: 01/23/23 130/70 07/23/22 130/68 01/28/22 110/80 Patient-entered: No data recorded Passed - Visit with relevant provider in past 12 months or upcoming 90 days Recent Visits Date Type Provider Dept 01/23/23 Office Visit Johnny Decker MD [facility] [place] 07/23/22 Office Visit Johnny Decker MD [facility] [place] Showing recent visits within past 365 days and meeting all other requirements Future Appointments Date Type Provider Dept 07/24/23 Appointment Johnny Decker MD [facility] [place] Showing future appointments within next 90 days and meeting all other requirements documented in this encounter Plan of Treatment Upcoming Encounters Date Type Department Care Team (Late st Contact Info) Description 04/18/2025 8:00 AM SPEECH PATHOLOGY TEACHER Office Visit [facility] - Primary Care - [place] [address] [place] [phone] Johnny Decker MD [address] [place] [address] documented as of this encounter Visit Diagnoses Not on filedocumented in this encounter Additional Health Concerns Assessment Noted Time PHQ-9 Depression Total Score: 0 01/24/20 23 7:59 AM SPEECH PATHOLOGY TEACHER documented as of this encounter Care Teams Tip Length Checker Relationship Specialty Start Date End Date Johnny Decker MD PCP - General Internal Medicine 10/11/19 documented as of this encounter
--- OUTSIDE RECORDS SUMMARY | 2024-10-21 12:00 | XMS_ITS | Encounter Summary ---
Author Organization [facility] Address [address] [place] [address] Phone Care Team Providers Care Storage Battery Tester Name Role Phone Johnny Decker MD Primary Care Provider Reason for Visit * Reason Comments Medication Refill Encounter Details Date Type Department Care Team (Late st Contact Info) Description 02/27/2020 Refill [facility] - Internal Medicine - [place] [address] [place] [phone] Johnny Decker MD [address] [place] [address] Medication Refill Social History Tobacco Use Types Packs/Day Years Used Date Smoking Tobacco: Never Assessed Comments Unknown Sex and Gender Information Value Date Recorded Sex Assigned at Not on file Legal Sex Female 8:09 PM CDT Gender Identity Not on file Sexual Orientation Not on file documented as of this encounter Miscellaneous Notes * Telephone Encounter - Brianna Phillips RN - 02/28/2020 8:55 AM CST Please review and sign. SIGNAL MECHANIC documented in this encounter Plan of Treatment Upcoming Encounters Date Type Department Care Team (Late st Contact Info) Description 04/18/2025 8:00 AM RAIL SIGNAL MECHANIC Office Visit [facility] - Primary [place] - [place] [address] [place] [phone] Johnny Decker MD [address] [place] [address] documented as of this encounter Visit Diagnoses Not on filedocumented in this encounter Care Teams Storage Battery Tester Relationship Specialty Start Date End Date Johnny Decker MD PCP - General Internal Medicine 10/11/19 documented as of this encounter
--- OUTSIDE RECORDS SUMMARY | 2024-10-21 12:00 | XMS_ITS | Encounter Summary ---
Author Organization [facility] Address [address] [place] [address] Phone Care Team Providers Care Structural Steel Detailer Name Role Phone Johnny Decker MD Primary Care Provider [phone] Reason for Visit * Reason Comments Medication Refill Encounter Details Date Type Department Care Team (Late st Contact Info) Description 09/23/2022 Refill [facility] - [place] [address] [place] [address] Johnny Decker MD [address] [place] [address] Medication Refill Social History Tobacco Use Types Packs/Day Years Used Date Smoking Tobacco: Never Passive Smoke Exposure: Never Smokeless Tobacco: Never Alcohol Use Standard Drinks/Week Comments Not Currently 0 (1 standard drink = 0.6 oz pur e alcohol) PHQ-2 Answer Date Recorded Total Score - Questions 1-9 0 07/08 Education Answer Date Recorded What is the [...] Encounter - Maria C Haskins RN - 09/23/2022 8:21 AM CDT Medication failed the protocol, provider to review and approve the medication order if appropriate. Requested Prescriptions Pending Prescriptions Disp Refills lisinopril (PRINIVIL, ZESTRIL) 40 MG Tablet [Pharmacy Med Name: Lisinopril 40 MG Oral Tablet] 90 Tablet 3 Sig: Take 1 Tablet by mouth daily. JAVED Inhibitors Protocol Failed - 09/23/2022 4:39 AM Failed - Serum potassium on record in past 12 months No results found for: POTASSIUM, POCTK Failed - GFR on record in past 12 months No results found for: GFRNA Passed - Blood pressure on record in past 12 months Clinician-entered: BP Readings from Last 3 Encounters: 07/23/22 130/68 01/28/22 110/80 07/24/21 124/66 Patient-entered: No data recorded Passed - Visit with relevant provider in past 12 months or upcoming 90 days Recent Visits Date Type Provider Dept 07/23/22 Office Visit Johnny Decker MD [facility] [place] 01/28/22 Office Visit Johnny Decker MD [facility] Showing recent visits within past 365 days and meeting all other requirements Future Appointments No visits were found meeting these conditions. Showing future appointments within next 90 days and meeting all other requirements documented in this encounter Plan of Treatment Upcoming Encounters Date Type Department Care Team (Late st Contact Info) Description 04/18/2025 8:00 AM CRUSHER PLANT OPERATOR Office Visit [facility] - [place] - [place] [address] [place] [phone] Johnny Decker MD [address] [place] [address] documented as of this encounter Visit Diagnoses Not on filedocumented in this encounter Additional Health Concerns Assessment Noted Time PHQ-9 Depression Total Score: 0 07/24/19 11:00 AM CDT documented as of this encounter Care Teams Structural Steel Detailer Relationship Specialty Start Date End Date Decker, Johnny K, MD PCP - General Internal Medicine 10/11/19 documented as of this encounter
--- NOTE | 2024-10-21 12:36 | ECG_ITS ---
Test Date: 2024-10-21 12:51:56 Measurements Intervals Alva Rate: 65 P: 45 MN: 167 QRS: -6 QRSD: 94 T: 13 QT: 375 QTc: 390 Interpretive Statements SINUS RHYTHM WITH SINUS ARRHTHMIA WITH OCCASIONAL VENTRICULAR PREMATURE COMPLEXES LOW QRS VOLTAGE IN PRECORDIAL LEADS BORDERLINE R WAVE PROGRESSION, ANTERIOR LEADS BASELINE ARTIFACT- I, II, III, AVR, AVL, AVF, V1-V6 BORDERLINE ECG No previous ECG available for comparison Electronically Signed On 10-21-2024 13:22:16 CDT by Tristin Miranda D.O.
[2024-10-21 13:00] LABS: Hematocrit 41.5 % (37.0-47.0); Hemoglobin 13.4 g/dL (12.0-15.0); Immature Granulocyte Percent A 0.4 % (0-0.5); Lymphocytes Absolute Auto 1.56 K/mm3 (0.9-3.2); Mean Corpuscular HGB Conc 32.3 g/dl (32-36); Mean Corpuscular Hemoglobin 30.6 pg (26-34); Mean Corpuscular Volume 94.7 fl (80-100); Nucleated Red Blood Cells Absolute Auto 0.000 K/mm3 (0.0-0.012); Nucleated Red Blood Cells Perc 0.0 % (0.0-0.2); Platelet Count Result 256 k/mm3 (150-375); Red Blood Count 4.38 M/mm3 (4.2-5.4); White Blood Count 7.7 K/mm3 (4.5-10.0)
[2024-10-21 13:28] LABS: Albumin Level 4.1 g/dL (3.5-5.1); Anion Gap 7 mmol/L (4-12); Blood Urea Nitrogen 14 mg/dL (7-17); Calcium 9.4 mg/dL (8.4-10.2); Carbon Dioxide 26 mmol/L (22-30); Chloride 103 mmol/L (98-107); Estimated Glomerular Filt Rate > 60; Glucose 94 mg/dL (65-110); Potassium 4.4 mmol/L (3.4-5.0); Sodium 136 mmol/L (137-145)
[2024-10-21 15:22] LABS: Hemoglobin A1C 5.4 % (<5.7)
== END 2024-10-21 11:49 | disposition home or self-care (01) ==
LOC: ANHSURGERY 11:51
PROVIDERS: PCP Internal Medicine; Visit Provider Orthopaedic Surgery
DX: Z01.818 Encounter for other preprocedural examination (principal); M17.11 Unilateral primary osteoarthritis, right knee; R94.31 Abnormal electrocardiogram [ECG] [EKG]
CPT/HCPCS: 80048; 80307; 82040; 83036; 85025; 87081; 93005

== ENCOUNTER 2024-11-11 00:35 | Day surgery (SDC) | payer MEDICARE, SELFPAY ==
--- NOTE | 2024-10-21 11:52 | PC.NURSE ---
Report to the Outpatient Waiting Room, entrance under the green pavilion located off [facility], at time _6 am on date __11/11/24 . Planned Procedure Time: _7:30 am .? Time changes happen often and if your time is changed the preop area will call you the afternoon before. - You and your visitor will be asked to self-screen and do not enter if you have any COVID symptoms. Please call surgeon if you need to reschedule. - A mask is optional within the hospital at this time. Patients may have clear liquids (water, carbonated beverages, clear teas, apple juice) until 3 hours prior to surgery( 4:30 am) with a maximum of 20 ounces. - No food from midnight until time of surgery and no smoking, or chewing tobacco (or any form of nicotine). No chewing gum, candy or mints. - Take only the following medications with a SIP of water on the morning of surgery: AMLODIPINE,DULOXETINE DO NOT STOP ANY OF YOUR OTHER PRESCRIPTION MEDICATIONS PRIOR TO SURGERY EXCEPT THE FOLLOWING Hold all vitamins and supplements for 3 days per anesthesiologist. Medications to discontinue per physician IBUPROFEN HOLD 7 DAYS PRE OP PER DR MCNEIL Date to take last dose___11/03/24 Please no make-up, nail croatian, hairspray, perfume, deodorant, or body powder the day of surgery.? No jewelry (including any body piercings) or valuables the day of surgery, leave them at home.? Please take a shower or bath the night before, or the morning of, surgery with an antibacterial soap.? Wear comfortable, loose fitting clothing.? Children are encouraged to wear pajamas. - Jewelry must be removed prior to entering the operating room.? Rings and piercings that are not removed may be cut off. - The hospital will not accept responsibility for valuables.? - Please leave all valuables, including medications, at home the day of surgery. If you are going home after surgery, a licensed lyft driver must drive you home.? - NO public transportation without another adult if you receive anesthesia. - We recommend that an adult stay with you for 24 hours following discharge. - We also recommend that you do not drive, make important decision, drink alcoholic beverages, or take any drugs that were not prescribed by your health care provider for at least 24 hours after your discharge time. For Pediatric surgeries, we recommend two adults accompany the child home. Follow any additional instructions given to you from your surgeon. VERBAL AND WRITTEN instructions given to ___PATIENT and asked if any additional questions and then verbalized understanding. Patient advised to call surgeon office or pre surgery nurse liaison [phone] if any additional questions.
[2024-10-21 12:01] VITALS: BMI 38.2
[2024-10-21 12:39] VITALS: BP 120/87; PULSE 65; RESP 18; TEMP 36.9; O2SAT 98
--- NOTE | 2024-11-10 16:29 | P.HP_ITS ---
H&P: HPI History of Present Illness Date/Time: 11/10/24 16:29 Chief Complaint: Right knee pain Narrative: Details: Patient returns. She is here for preoperative discussion prior to right total knee replacement which has been scheduled for November 11. She was scheduled for knee replacement earlier this year but her had a stroke so she had to postpone her surgery. Patient continues to have pain every day in the right knee. She has been taking ibuprofen 800 mg 1 or 2 times a day as needed. Patient underwent left total knee replacement in November of 2023 is very happy with her result has no pain in the left kn [facility] Past Medical History Medical History Sleep apnea Depression Asthma Hypertension Surgical History Surgical History History of left knee replacement History of hysterectomy Family History Family History Sibling Heart disease Acute myocardial infarction Alcoholism Cancer Father Heart disease Mother , NATURAL CAUSES No problems noted. Social History Social History Smoking status: Never smoker Second hand tobacco smoke exposure: No Additional smoking assessment comments: DENIES ANY FORM OF TOBACCO USE Alcohol intake: current Drinks per week: 1 Substance use: never Substance use type: does not use Current Housing: Decline to Answer Concerned About Future Housing: Decline to Answer Difficulty Paying Gas/Electric Bills: Decline to Answer Difficulty Paying for Meds: Decline to Answer Currently Unemployed: Decline to Answer Education: Decline to Answer Difficulty w/ Childcare or Family Care: Decline to Answer Living arrangements: with family Occupation/Education: retired 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 Gender identity (if verbalized by the patient): Female Spiritual care concerns: No Meds Home Medications and Allergies Home Medications ?Medication ?Instructions ?Recorded ?Confirmed ?Type amlodipine 10 mg tablet 10 mg PO DIRECTED 4 10/21/24 History duloxetine 60 mg capsule,delayed 60 mg PO DIRECTED 06/20/23 10/21/24 History release lisinopril 40 mg tablet 40 mg PO DIRECTED 4 10/21/24 History montelukast 10 mg tablet 10 mg PO DAILY 07/09/2310/08 History ibuprofen 200 mg tablet 800 mg PO Q6H PRN pain 02/2410/21/24 History Allergies Allergy/AdvReac Type Severity Reaction Status Date / Time amoxicillin AdvReac Intermediate Rash Verified 10/21/24 12:02 clavulanic acid AdvReac Intermediate Rash Verified 10/21/24 12:02 Exam Narrative: hysical examination On exam today she is a very pleasant female she is alert and oriented. She is in no acute distress. Her BMI is 38.2. Patient has range of motion of the right knee from 0-135 degrees. Trace effusion. Moderate medial joint line tenderness mild lateral joint line tenderness normal AP and varus valgus stability. Hip range of motion causes no discomfort. Negative Stinchfield maneuver. 5/5 quadriceps strength. She has a 2+ dorsalis pedis absent posterior tibial artery pulse. Normal light touch sensation. Skin looks normal no lower extremity edema. Assessment and Plan Assessment and plan (1) Primary osteoarthritis of right knee: Code(s): M17.11 - Unilateral primary osteoarthritis, right knee Status: Acute Assessment and Plan: X-rays X-rays four views the right knee obtained today in the office Demonstrate [id number] medial compartment osteoarthritis and [id number] lateral compartment osteoarthritis on PA flexion Stork view. [id number] patellofemoral arthritis noted on lateral view. Assessment and plan Patient has severe osteoarthritis in the right knee has progressed to now involve the lateral compartment as well which is progression compared with x- rays from 1 year ago. The she would like to proceed with right knee replacement is been scheduled for November. I have discussed risks of surgery with her in detail. I reminded her that there will be numbness lateral to the incision, the patients have difficulty kneeling after knee replacement and that some patients will have chronic anterior knee sensitivity. We discussed the risk of infection. Her teeth are in good con dition. Risk of blood clots was explained. She has no personal or family history of blood clot problems. Risk of stiffness ligament injury fracture component loosening and need for revision surgery was discussed. Risk of nerve injury, bleeding, need for transfusion, and medical complications such as heart attack stroke pulmonary embolism and were explained. We did have her see the research lab assistant Dr. Miranda prior to her surgery 1 year ago and a stress test was performed which was negative. Patient has a history of hypertension herself but no personal history of heart problems but did have a positive family history of heart attacks. Over the last year she has had no health issues to her knowledge she denies any shortness of breath or chest pain problems. I would like her to see Dr. Decker for medical clearance before surgery. She will need to stop her ibuprofen 1 week before surgery. We will proceed as discussed.
[2024-11-11] VITALS (16 sets, daily range): BP systolic 112–142; BP diastolic 60–90; PULSE 81–100; RESP 12–21; TEMP 36.1–36.8; O2SAT 93–98
--- NOTE | ~2024-11-11 | XR_ITS ---
EXAM/ PROCEDURE: [id number] - 11/11/2024 10:38 CDT HISTORY: 74 years old Female with POST-OP RIGHT TKA COMPARISON: None available TECHNIQUE: Three view(s) FINDINGS/ IMPRESSION: Status post right knee arthroplasty. Intact hardware loosening. Postsurgical changes including subcutaneous emphysema and diffuse soft tissue swelling. Reviewed, dictated and finalized at location N.
--- OUTSIDE RECORDS SUMMARY | 2024-11-11 00:38 | XMS_ITS | Encounter Summary ---
Author Organization [facility] Address [address] [place] [address] Phone Care Team Providers Care Ssn/Ssbn Weapons Equipment Operator Name Role Phone Johnny Decker MD Primary Care Provider [phone] Encounter Details Date Type Department Care Team (Late st Contact Info) Description 11/05/2024 Results Follow-Up [facility] - Primary Care - [place] [address] [place] [address] Wanda Rossi PAC [address] [place] [address] CMP (COMPREHENSIVE METABOLIC PANEL), LIPID PANEL Social History Tobacco Use Types Packs/Day Years Used Date Smoking Tobacco: Never Passive Smoke Exposure: Never Smokeless Tobacco: Never Alcohol Use Standard Drinks/Week Comments Not Currently 0 (1 standard drink = 0.6 oz pur e alcohol) [facility] Utilities Answer Date Recorded In the past 12 months has [employer] electric, gas, oil, or water company threatened [...] often do you attend [facility] or mormonism services? Patient declined 04/10/2024 Do you belong to any clubs o r organizations such as confucianist groups, unions, fraternal or athletic groups, or [...] Total Score - Questions 1-9 0 05/2024 [facility] - Occupational [...] were you homeless or living in a nursing home (including now)? No 04/10/2024 Education Answer Date [...] on file documented as of this encounter Plan of Treatment Upcoming Encounters Date Type Department Care Team (Late st Contact Info) Description 04/18/2025 8:00 AM RETAIL MANAGEMENT KEYHOLDER Office Visit [facility] - Primary Care - [place] [address] [place] [address] Johnny Decker MD [address] [place] [address] documented as of this encounter Visit Diagnoses Not on filedocumented in this encounter Additional Health Concerns Assessment Noted Time PHQ-9 Depression Total Score: 0 04/12/19 25 9:45 AM RETAIL MANAGEMENT KEYHOLDER documented as of this encounter Care Teams Ssn/Ssbn Weapons Equipment Operator Relationship Specialty Start Date End Date Johnny Decker MD PCP - General Internal Medicine 10/11/19 documented as of this encounter
--- OUTSIDE RECORDS SUMMARY | 2024-11-11 00:38 | XMS_ITS | Clinical Summary ---
Author Organization [facility] Address [address] [place] [address] Phone Care Team Providers Care Legal Support Analyst Name Role Phone Johnny Decker MD Primary [...] Encounters Date Type Department Care Team Description 11/05/2024 Results Follow-Up [facility] [address] [place] [phone] Wanda Rossi PAC CMP (COMPREHENSIVE METABOLIC PANEL), LIPID PANEL 10/26/2024 Telephone [facility] [address] [place] [address] Johnny Decker MD Form Completion 10/15/2024 8:00 AM CDT Office Visit [facility] [address] [place] [address] Johnny Decker MD Pre-op evaluation (Primary Dx); Primary osteoarthritis of right knee; Essential (primary) hypertension; Other hyperlipidemia; Mild intermittent asthma without complication Discharge Disposition: Discharged to home or Selfcare 10/15/2024 Telephone [facility] Call Center [address] [place] [phone] Johnny Decker MD Labs Only 10/15/2024 Travel from Last 3 Months Immunizations Immunization Administration Dates Next Due Covid-19, Mrna, Lnp-s, Pf, 30 Mcg/0.3 Ml Dose (P fizer) 05/25/2020,05/02/2020 Influenza Vaccine greater than 3 yrs 12/23/2017 Influenza Vaccine, Quadrivalent, PF 01/26/2024,1 03/25/2020 Influenza, Quadrivalent, Adjuvanted 01/23/2023 Pneumococcal Vaccine - 13 Valent 01/23/2024,01/08 Pneumococcal conjugate PCV20 , polysaccharide [id number] conjugate, adjuvant, PF 01/28/2022 Family History Relation Name Status Comments Brother 1 Brother 2 Father Mother Social History Tobacco Use Types Packs/Day Years Used Date Smoking Tobacco: Never Passive Smoke Exposure: Never Smokeless Tobacco: Never Tobacco Cessation:Counseling Given: No Alcohol Use Standard Drinks/Week Comments Not Currently 0 (1 standard drink = 0.6 oz pur e alcohol) [facility] Utilities Answer Date Recorded In the past 12 months has th e electric, gas, oil, or water company threatened [...] week 04/10/2024 How often do you attend [facility]ur or methodist services? Patient declined 04/10/2024 Do you belong to any clubs o r organizations such as shinto groups, unions, fraternal or athletic groups, or [...] Total Score - Questions 1-9 0 05/2024 [facility] - Occupational [...] were you homeless or living in a group home (including now)? No 04/10/2024 Education Answer [...] 170.2 cm (5' 7) 04/12/2024 9:43 AM SHIFT NURSE MANAGER Body Mass Index 37.9 04/12/2024 9:43 AM SHIFT NURSE MANAGER Plan of Treatment Upcoming Encounters Date Type Department Care Team (Late st Contact Info) Description 04/18/2025 8:00 AM SHIFT NURSE MANAGER Office Visit [facility] - Primary Care - [place] [address] [place] [phone] Johnny Decker MD [address] [place] [address] Health Maintenance Due Date Last Done Comments DEXA Bone Density 1950 Hepatitis C Virus (HCV) Screening 1950 TdaP Immunization 1950 Cologuard 10/07/1996 Colonoscopy 10/07/1996 Immunochemical Fecal Occult Blood 10/07/1996 Respiratory Syncytial Virus (RSV) Immunization (Adult) (1 - Risk 60-74 years 1-dose series) 2011 Mammogram 08/08/2022 08/08/2021, 07/23/2010 Influenza Immunization (#1) 11/08/202401/08, 01/23/2023, 11/19/2021, Additional history exists SARS-COV-2 Immunization (2024- season) 2024 07/12/2022, 11/19/2021, 06/25/2021, Additional history exists Pneumococcal Immunization (50+ years) [...] Procedure Name Priority Date/Time Associated Diagnosis Comments EKG SCAN 10/21/2024 12:00 AM CDT EKG SCAN 10/21/2024 12:00 AM CDT LIPID PANEL Routine 2024 12:00 AM CDT Essential (primary) hypertension Other hyperlipidemia CMP (COMPREHENSIVE METABOLIC PANEL) Routine 2024 12:00 AM CDT Essential (primary) hypertension Other hyperlipidemia ORTHOPEDIC SURGERY CONSULT 10/06/2024 12:00 AM CDT JULEE SCREENING BILATERAL DIGITAL W CAD W [place] Routine 08/08/2021 7:23 AM CDT Breast cancer screening by mammogram from Last 3 Months or Most Recently Relevant to Health Maintenance Results * EKG SCAN (10/21/2024 12:00 AM CDT) Only the most recent of2 resultswithin the time period is included. 10/21/2024 us Provider Scan IMG ECG ORDERABLES Final Result RESULTING AGENCY * LIPID PANEL (2024 12:00 AM CDT) CHOLESTEROL 180 SCAN HDL CHOLESTEROL 48 SCAN LDL 113 SCAN Blood us Johnny Decker MD CHEMISTRY ORDERABLES Final Result SCAN * CMP (COMPREHENSIVE METABOLIC PANEL) (2024 12:00 AM CDT) Blood us Johnny Decker MD CHEMISTRY ORDERABLES Final Result SCAN * ORTHOPEDIC SURGERY CONSULT (10/06/2024 12:00 AM [...] Comparison is made to exam dated: 07/23/2010 [facility]. BREAST TISSUE:There are scattered fibroglandular densities in [...] exam. Electronically signed by: Bridger martines/keo:08/08/2021 16:12:28 Gas Plant Repairer(s): Shila Ortiz)(M), [facility] letter sent: Normal Exam Reading location: [facility] BI-RADS: 1 Negative Procedure Note Bridger Lopez [...] Comparison is made to exam dated: 07/23/2010 [facility]. BREAST TISSUE:There are scattered fibroglandular densities in [...] exam. Electronically signed by: Bridger martines/keo:08/08/2021 16:12:28 Gas Plant Repairer(s): Shila Ortiz)(M), [facility] letter sent: Normal Exam Reading location: [facility] BI-RADS: 1 Negative us Johnny Decker MD IMG MAMMO ORDERABLES Final Result from Last 3 Months or Most Recently Relevant to Health Maintenance Insurance Care Teams Legal Support Analyst Relationship Specialty Start Date End Date Johnny Decker MD PCP - General Internal Medicine 10/11/19
--- OUTSIDE RECORDS SUMMARY | 2024-11-11 00:38 | XMS_ITS | Encounter Summary ---
Author Organization [facility] Address [address] [place] [address] Phone Care Team Providers Care Grid Molder Name Role Phone Johnny Decker MD Primary Care Provider Reason for Visit * Reason Onset Date Comments Labs Only 10/15/2024 Encounter Details Date Type Department Care Team (Late st Contact Info) Description 10/15/2024 Telephone [facility] [address] [place] [address] Johnny Decker MD [address] [place] [address] Labs Only Social History Tobacco Use Types Packs/Day Years Used Date Smoking Tobacco: Never Passive Smoke Exposure: Never Smokeless Tobacco: Never Alcohol Use Standard Drinks/Week Comments Not Currently 0 (1 standard drink = 0.6 oz pur e alcohol) [facility] Utilities Answer Date Recorded In the past 12 months has [employer] electric, gas, oil, or water company threatened [...] week 04/10/2024 How often do you attend [facility] or adventist services? Patient declined 04/10/2024 Do you belong to any clubs o r organizations such as mandaen groups, unions, fraternal or athletic groups, or [...] Total Score - Questions 1-9 0 05/2024 [facility] - [...] were you homeless or living in a longterm (including now)? No 04/10/2024 Education Answer Date [...] with patient that labs were drawn at [facility]. Recommendation: Patient confirmed labs were drawn at [facility]. Encounter routed to [facility] to notify. documented in this encounter Plan of Treatment Upcoming Encounters Date Type Department Care Team (Late st Contact Info) Description 04/18/2025 8:00 AM BORING MACHINE OPERATOR HELPER Office Visit [facility] - Primary Care - [place] [address] [place] [phone] Johnny Decker MD [address] [place] [address] documented as of this encounter Visit Diagnoses Not on filedocumented in this encounter Additional Health Concerns Assessment Noted Time PHQ-9 Depression Total Score: 0 04/12/19 25 9:45 AM BORING MACHINE OPERATOR HELPER documented as of this encounter Care Teams Grid Molder Relationship Specialty Start Date End Date Johnny Decker MD PCP - General Internal Medicine 10/11/19 documented as of this encounter
--- OUTSIDE RECORDS SUMMARY | 2024-11-11 00:38 | XMS_ITS | Encounter Summary ---
Author Organization [facility] Address [address] [place] [address] Phone Care Team Providers Care Process Safety Specialist Name Role Phone Johnny Decker MD Primary Care Provider [phone] Reason for Visit * Reason Comments Medication Refill Encounter Details Date Type Department Care Team (Late st Contact Info) Description 09/23/2022 [facility]ill [facility] - [place] [address] [place] [address] Johnny Decker MD [address] [place] [address] Medication Refill Social History Tobacco [...] [place] 01/28/22 Office Visit Johnny Decker MD [facility] Showing recent visits within past 365 days and meeting all other requirements Future Appointments No visits were found meeting these conditions. Showing future appointments within next 90 days and meeting all other requirements documented in this encounter Plan of Treatment Upcoming Encounters Date Type Department Care Team (Late st Contact Info) Description 04/18/2025 8:00 AM FLUORESCENT LIGHTING MODEL MAKER Office Visit [facility] - Primary Care - [place] [address] [place] [phone] Johnny Decker MD [address] [place] [address] documented as of this encounter Visit Diagnoses Not on filedocumented in this encounter Additional Health Concerns Assessment Noted Time PHQ-9 Depression Total Score: 0 07/24/19 11:00 AM CDT documented as of this encounter Care Teams Process Safety Specialist Relationship Specialty Start Date End Date Decker, Johnny K, MD PCP - General Internal Medicine 10/11/19 documented as of this encounter
--- OUTSIDE RECORDS SUMMARY | 2024-11-11 00:39 | XMS_ITS | Encounter Summary ---
Author Organization [facility] Address [address] [place] [address] Phone Care Team Providers Care Legal Secretary Receptionist Name Role Phone Johnny Decker MD Primary Care Provider Reason for Visit * Reason Comments Medication Refill Encounter Details Date Type Department Care Team (Late st Contact Info) Description 02/27/2020 Refill [facility] - Internal Medicine - [place] [address] [place] [place] [phone] Johnny Decker MD [address] [place] [address] Medication Refill Social History Tobacco [...] 8:55 AM CST Please review and sign. MOBILE documented in this encounter Plan of Treatment Upcoming Encounters Date Type Department Care Team (Late st Contact Info) Description 04/18/2025 8:00 AM GM MOBILE Office Visit [facility] - Primary Care - [place] [address] [place] [phone] Johnny Decker MD [address] [place] [address] documented as of this encounter Visit Diagnoses Not on filedocumented in this encounter Care Teams Legal Secretary Receptionist Relationship Specialty Start Date End Date Johnny Decker MD PCP - General Internal Medicine 10/11/19 documented as of this encounter
[2024-11-11] MEDS: ACETAMINOPHEN 500 MG TABLET 1000 MG PO (06:30)
[2024-11-11] MEDS: TRANEXAMIC ACID 1,000MG/ISO100 1,000 MG/100 ML BAG 200 MG IVPB (06:35)
[2024-11-11] MEDS: VANCOMYCIN 1,750 MG/NS 500 ML BAG 250 MG IVPB (06:35)
[2024-11-11] MEDS: LACTATED RINGERS 1,000 ML 30 ML IV CONT ×2 (06:35→10:44)
--- NOTE | 2024-11-11 07:18 | P.PNAN_ITS ---
Anes - Initial Pre Proc Eval Procedure: Operation Date: 11/11/24 07:30 Proposed Procedures p Right Total Knee Arthroplasty - Thien Jama MD Date/Time: 11/11/24 07:18 Surgeon: Thien Jama MD Pre Op Diagnosis: oa right knee Patient Data Age: 74 Gender: F Height: 1.7 m Weight: 109.9 kg Last Vital Signs Temp 97.2 F L 11/11/24 06:49 Pulse 81 11/11/24 06:49 Resp 18 11/11/24 06:49 BP 136/90 11/11/24 06:49 Pulse Ox 98 11/11/24 06:49 O2 Del Method Room Air 11/11/24 06:49 Allergies Allergy/AdvReac Type Severity Reaction Status Date / Time amoxicillin AdvReac Intermediate Rash Verified 11/11/24 06:44 clavulanic acid AdvReac Intermediate Rash Verified 11/11/24 06:44 Home Medications ?Medication ?Instructions ?Recorded ?Confirmed ?Type amlodipine 10 mg tablet 10 mg PO DIRECTED 4 11/11/24 History duloxetine 60 mg capsule,delayed 60 mg PO DIRECTED 06/20/23 11/11/24 History release lisinopril 40 mg tablet 40 mg PO DIRECTED 4 11/11/24 History montelukast 10 mg tablet 10 mg PO DAILY 07/09/2307/02 History ibuprofen 200 mg tablet 800 mg PO Q6H PRN pain 02/2411/11/24 History Laboratory Tests 11/11/24 06:35 Blood Type Pending Antibody Screen Pending Patient hx anesthesia problems: post op nausea/vomiting Family hx anesthesia problems: none Results Review: All pre-operative results and documents have been reviewed as part of the pre- operative evaluation. [facility] Past Medical History Medical History Sleep apnea Depression Asthma Hypertension Surgical History Surgical History History of left knee replacement History of hysterectomy Family History Family History Sibling Heart disease Acute myocardial infarction Alcoholism Cancer Father Heart disease Mother , NATURAL CAUSES No problems noted. Social History Social History Smoking status: Never smoker Second hand tobacco smoke exposure: No Additional smoking assessment comments: DENIES ANY FORM OF TOBACCO USE Alcohol intake: current Drinks per week: 1 Substance use: never Substance use type: does not use Current Housing: Decline to Answer Concerned About Future Housing: Decline to Answer Difficulty Paying Gas/Electric Bills: Decline to Answer Difficulty Paying for Meds: Decline to Answer Currently Unemployed: Decline to Answer Education: Decline to Answer Difficulty w/ Childcare or Family Care: Decline to Answer Living arrangements: with family Occupation/Education: retired 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 Informed Consent: The patient's anesthetic plan and its attendant risks and benefits were discussed with the patient/family/POA. Questions were solicited and answers provided to the satisfaction of the patient/family/POA.
--- NOTE | 2024-11-11 07:18 | WPDHPUPDATE1 ---
History and Physical Update Update Date/Time: 11/11/24 07:18 History and Physical has been reviewed, including an updated exam of the patient. There are NO changes in the patient's condition. Risks, benefits, and alternatives have been discussed and questions answered. Patient agrees to proceed with procedure.
[2024-11-11] MEDS: ceFAZolin 2 GM in SODIUM CHLORIDE 0.9% IV 50 ML 100 ML IVPB ×3 (07:30→23:59)
[2024-11-11] MEDS: GENTAMICIN BONE CEMENT REFOBACIN 1 EACH TOPICAL (09:18)
[2024-11-11] MEDS: TRANEXAMIC ACID 1,000 MG/10 ML AMPUL 1000 MG IV PUSH (09:51)
--- NOTE | 2024-11-11 10:40 | P.OP_ITS ---
Procedure Note - Detailed Date of Procedure 11/11/24 Pre-op Diagnosis oa right knee Post-op Diagnosis Same Procedure Performed Right total knee replacement Surgeon Thien Jama MD Steward/[facility] nelson Anesthesia General Description of Procedure Patient was brought to the operating room and general anesthesia was administered. The right knee was prepped draped usual fashion. She received 2 g of Ancef 1 g of TXA and weight based vancomycin preoperatively. Limb was exsanguinated and tourniquet elevated to 300 mmHg. A 7 in longitudinal midline incision was used in a standard parapatellar arthrotomy utilized. Partial excision of infrapatellar fat pad carried out suprapatellar fat pad excised and a quadriceps synovectomy carried out. 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 Unfortunately the thickness centrally was only 18 mm. The lateral facet thickness with 13 mm and I felt that this was too thin to safely resurface a lateral facetectomy was performed conservatively. A guide marialuisa was inserted on femoral canal after aspiration of canal contents using the 5 degree valgus cutting bushing, 9 mm of bone was removed the distal femur. Next the tibial plateau was cut removing approximately 3 mm of bone from the low point of medial tibial plateau which removed about 8 laterally. Meniscal remnants were excised the PCL was recessed. The flexion gap measured 9 mm medially 1 and 13 mm laterally. The femoral sizing guide was applied to the distal femur set at 5? of external rotation which matched [place] line. The size 62.5 cutting block was placed and AP and chamfer cuts were made and this gave a flush cut with the anterior cortex. The 62.5 trial fit line to line medial to lateral. Tibia was sized to a 67 which fit line to line at proper rotation posterolateral to anteromedial. This was punched. We trialed with the 10 insert and there is appropriate stability at 90?. Eleven felt too tight. We lacked full extension due to tightness laterally. The medial side open 2 mm. We assessed the distal femoral cut alignment and found that it was 4? therefore an additional mm of bone was removed from lateral plateau after which the 5 degree wing on the intramedullary marialuisa indicated that we were at the exactly 5?. With this the knee almost came out to full extension but still had a positive bounce. There remained 2 mm of medial opening but no opening laterally that 0 or 5? of flexion. I felt we had appropriate soft tissue tension everywhere except for laterally in extension where it was too tight therefore we carefully released the posterolateral capsule. With this done on read trialing we had 1 mm of opening laterally in extension but still had a positive bounce. Therefore a conservative posterior capsule release was performed centrally and laterally. She did not have a varus deformity preop and therefore we did not release any of the medial capsule from tibia or remove any medial osteophyte. On read trialing at this time the knee came out to full extension with negative bounce with 1 mm lateral opening 2 mm medial opening appropriate stability throughout range of motion. [place] flexion was 130 and there was central patellar tracking. Lug holes were drilled for the femoral component step drill was used to make multiple perforations in the tibial plateau and distal femur. Bony surfaces were thoroughly irrigated and dried. Using 2 batches of methylmethacrylate 1 with gentamicin powder, the cement was immediately applied to the vanguard 67 tibia and the 62.5 CR femur. Cement was pressurized into the tibial plateau tibial component fully seated cement applied the femur the femoral component fully seated the knee brought into full extension with 11 mm 5 in 1 insert for cement pressurization. Tourniquet was released at 93 minutes. She received additional 2 g of Ancef and 1 g of TXA. After cement hardening excess cement was sought for and removed and hemostasis was achieved. We trialed again with the 10 insert which had the same findings as above. The real 10 was placed locked with a locking clip. Range of motion stability patellar tracking reconfirmed. Local anesthetic cocktail was injected into the periarticular soft tissues. The wound thoroughly irrigated again with Ancef solution. Arthrotomy was closed with 2. Vicryl and 1. Unidirectional barbed Stratafix suture. Skin closed with 2 subcutaneous Vicryl 3-0 6 subcuticular Monocryl and glue EBL was 200 cc. There were no complications she was transferred postop recovery room in good condition. Bone quality seemed to be very good. The [facility] Billing Surgery - Charge Forward: Surgery Billing (Right total knee replacement)
[2024-11-11] MEDS: fentaNYL CITRATE INJ (*CRX) 100 MCG/2 ML VIAL 25 MCG IV PUSH ×8 (10:55→11:54)
--- NOTE | 2024-11-11 12:20 | ADMGEN ---
This patient, Jenifer Cain, was admitted to [facility] Surg Room 328-01. Patient/family oriented to hospital policies and general routines including ID bracelet, bed and alarms, visiting hours, pain management, procedures, bathroom and other care routines, personal items, smoking policy, room service/diet, and visiting hours. Information on how to activate the Rapid Response Team has been discussed. Patient/Family are encouraged to report perceived risks to care and to ask questions if they do not understand what they are told or what they should do.
[2024-11-11] MEDS: ACETAMINOPHEN 325 MG TABLET 650 MG PO ×4 (13:04→23:52)
[2024-11-11] MEDS: SODIUM CHLORIDE 0.9% IV 1,000 ML 125 ML IV CONT (13:05)
[2024-11-11] MEDS: oxyCODONE HCL (*CRX) 5 MG TAB IR PO ×3 (14:25→22:19)
[2024-11-11] MEDS: KETOROLAC 15 MG/ML VIAL (*BKC) 7.5 MG IV PUSH ×2 (16:50→22:17)
[2024-11-11] MEDS: SENNA/DOCUSATE SODIUM TABLET 2 TAB PO (16:51)
--- NOTE | 2024-11-11 16:54 | PM.IMCN ---
Assessment and Plan Assessment and plan (1) Status post total right knee replacement: Code(s): Z96.651 - Presence of right artificial knee joint Status: Acute Assessment and Plan: - primary management the orthopedic team - use IS - neurovasc checks - see order for intervals - SCDs - analgesics and antiemetics p.r.n. - monitor labs in AM - CBC and BMP - bowel regimen: docusate/senna, polyethylene glycol - PT/OT (2) Hypertension: Qualifiers: Hypertension type: primary hypertension Qualified Code(s): I10 - Essential (primary) hypertension Code(s): I10 - Essential (primary) hypertension Status: Chronic Assessment and Plan: - chronic, currently 119/64 - home medications: continue amlodipine 10 mg daily, hold lisinopril 40 mg daily - monitor (3) Sleep apnea: Qualifiers: Sleep apnea type: unspecified type Qualified Code(s): G47.30 - Sleep apnea, unspecified Code(s): G47.30 - Sleep apnea, unspecified Status: Chronic Assessment and Plan: - continue home CPAP Plan Diet: Regular GI Prophylaxis: Famotidine p.o. DVT Prophylaxis: SCDs, Eliquis IV fluids: NS 125 mL/hour x8 hours Lines/Tubes: Peripheral IV Code Status: Full code HPI Date of Consult Consult date: 11/11/24 Requesting Physician: Thien Jama MD Primary Care Provider: Johnny DeckerMD Consult Narrative Reason for consult: Medical Management Narrative: Jenifer Cain is a 74 year old female with a past medical history significant for hypertension, asthma, depression, and sleep apnea. She presents to [facility] on 11/11 for a right total knee replacement. She reports she has been having significant pain in her right knee for some time and is affecting her daily. She has been taking NSAIDs at home, ibuprofen 800 mg 1-2 times daily, as well as Tylenol for the pain at without much relief. She has previously underwent a total left knee arthroplasty in November 2023. She is happy with the results and she reports an unremarkable recovery. Given these factor she elected to move forward with surgical management. Postop she reports no significant symptoms and is feeling well. Preop VS: 98.5? F, HR 65, R 18, 120/87, and 98% on RA. Preop workup: No leukocytosis, no anemia, no significant electrolyte derangements, creatinine 0.81 and GFR >60, A1c 5.4%. Review of Systems Review of Systems: All systems reviewed & are unremarkable except as noted in HPI and below PMFSH Past Medical History Medical History (Updated 11/11/24 @ 17:04 by Stephenie Rodríguez APRN) Sleep apnea Depression Asthma Hypertension Surgical History Surgical History (Updated 11/11/24 @ 17:04 by Stephenie Rodríguez APRN) History of total left knee replacement Status post total right knee replacement History of hysterectomy Family History Family History Sibling Heart disease Acute myocardial infarction Alcoholism Cancer Father Heart disease Mother , NATURAL CAUSES No problems noted. Social History Social History Smoking status: Never smoker Second hand tobacco smoke exposure: No Additional smoking assessment comments: DENIES ANY FORM OF TOBACCO USE Alcohol intake: current Drinks per week: 1 Substance use: never Substance use type: does not use Lack of Transportation: No Lack of Food: Never True Current Housing: Decline to Answer Concerned About Future Housing: Decline to Answer Difficulty Paying Gas/Electric Bills: Decline to Answer Difficulty Paying for Meds: Decline to Answer Currently Unemployed: Decline to Answer Education: Trade/Vocational Certificate Difficulty w/ Childcare or Family Care: Decline to Answer Living arrangements: with family Occupation/Education: retired 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 Gender identity (if verbalized by the patient): Female Spiritual care concerns: No Meds Home Medications and Allergies Home Medications ?Medication ?Instructions ?Recorded ?Confirmed ?Type amlodipine 10 mg tablet 10 mg PO DIRECTED 06/20/23 11/11/24 History duloxetine 60 mg capsule,delayed 60 mg PO DIRECTED 06/20/23 11/11/24 History release lisinopril 40 mg tablet 40 mg PO DIRECTED 06/20/23 11/11/24 History montelukast 10 mg tablet 10 mg PO DAILY 07/09/23 11/11/24 History ibuprofen 200 mg tablet 800 mg PO Q6H PRN pain 02/25/24 11/11/24 History Allergies Allergy/AdvReac Type Severity Reaction Status Date / Time amoxicillin AdvReac Intermediate Rash Verified 11/11/24 06:44 clavulanic acid AdvReac Intermediate Rash Verified 11/11/24 06:44 Vital Signs Vital Signs - 24 hr 11/11/24 06:49 11/11/24 10:44 11/11/24 10:58 Temperature 97.2 F L 97.5 F L 97 F L Pulse Rate 81 84 92 Respiratory Rate 18 13 14 Blood Pressure 136/90 130/78 130/62 Pulse Oximetry 98 95 96 Oxygen Delivery Room Air Simple Face Mask Oxygen Flow Rate 8 11/11/24 10:59 11/11/24 11:14 11/11/24 11:25 Temperature 98.2 F Pulse Rate 94 99 Respiratory Rate 14 12 Blood Pressure 133/72 123/61 Pulse Oximetry 98 98 Oxygen Delivery Simple Face Mask Room Air Oxygen Flow Rate 8 11/11/24 11:30 11/11/24 11:43 11/11/24 11:45 Temperature 97 F L Pulse Rate 92 87 93 Respiratory Rate 12 14 12 Blood Pressure 142/70 H 120/68 112/90 Pulse Oximetry 94 96 94 Oxygen Delivery Nasal Cannula Nasal Cannula Oxygen Flow Rate 2 2 11/11/24 11:53 11/11/24 12:43 11/11/24 12:43 Temperature 97 F L Pulse Rate 95 99 90 Respiratory Rate 14 14 14 Blood Pressure 131/75 119/64 Pulse Oximetry 96 93 96 Oxygen Delivery Nasal Cannula Nasal Cannula Oxygen Flow Rate 2 2 11/11/24 14:43 11/11/24 15:08 Temperature Pulse Rate Respiratory Rate Blood Pressure Pulse Oximetry Oxygen Delivery Room Air Room Air Oxygen Flow Rate Exam Const: General: comfortable and no acute distress Other: , female, elderly, nontoxic appearance HENMT: Face/Nose/Sinus: Normal nares present Mouth: Yes moist mucous membranes Eyes: General: appearance normal, both eyes and all related structures Sclera: sclerae normal Pupils: Equal, round and reactive pupils present EOM: EOMs intact bilaterally Resp: Effort & Inspection: normal respiratory effort Auscultation: clear to auscultation bilaterally Cardio: Rate: regular rate Rhythm: regular rhythm Other: S1-S2 present without murmur, rub, ectopy GI: Other: Abdomen soft, nondistended, nontender. Normoactive bowel sounds in all quadrants. Skin: General skin exam: normal color and no rashes or lesions noted Other: Postoperative incision to right knee. Neuro: Speech: normal speech Motor exam (neuro): 5/5 motor strength present throughout Sensory Exam: normal sensation Other: A&O x4 Extrem: Other: Postop incision to right knee, no appreciable edema or crepitus. Dressing is CDI. No peripheral edema. Psych: Mental Status: mental status grossly normal Affect: normal affect Other: Good insight and judgment, very pleasant Quality VTE Prophylaxis VTE prophylaxis: mechanical ordered and pharmacologic ordered Hospitalist MIPS Advance Care Plan I have confirmed that the patient's Advanced Care Plan is present, code status is documented, or surrogate decision maker is listed in patient medical record.: Yes Medication Reconciliation I have utilized all available resources to obtain, update and review the patients current medications (includes all prescriptions, OTC, herbals, cannabis, and nutritional supplements).: Yes
[2024-11-11] MEDS: VANCOMYCIN HCL 1,000 MG in SODIUM CHLORIDE 0.9% IV 250 ML 250 MG IVPB (18:05)
[2024-11-11] MEDS: FAMOTIDINE 20 MG TABLET PO (20:25)
[2024-11-12 00:24] VITALS: BP 104/53; PULSE 72; RESP 20; TEMP 36.6; O2SAT 97
[2024-11-12] MEDS: oxyCODONE HCL (*CRX) 5 MG TAB IR PO ×3 (02:26→11:06)
[2024-11-12] MEDS: KETOROLAC 15 MG/ML VIAL (*BKC) 7.5 MG IV PUSH ×2 (04:03→09:44)
[2024-11-12] MEDS: ACETAMINOPHEN 325 MG TABLET 650 MG PO ×3 (04:04→12:15)
[2024-11-12 04:22] VITALS: BP 136/81; PULSE 68; RESP 20; TEMP 36.8; O2SAT 97
[2024-11-12 06:42] LABS: Hematocrit 36.0 % (37.0-47.0); Hemoglobin 11.5 g/dL (12.0-15.0); Immature Granulocyte Percent A 0.5 % (0-0.5); Lymphocytes Absolute Auto 1.06 K/mm3 (0.9-3.2); Mean Corpuscular HGB Conc 31.9 g/dl (32-36); Mean Corpuscular Hemoglobin 31.2 pg (26-34); Mean Corpuscular Volume 97.6 fl (80-100); Nucleated Red Blood Cells Absolute Auto 0.000 K/mm3 (0.0-0.012); Nucleated Red Blood Cells Perc 0.0 % (0.0-0.2); Platelet Count Result 204 k/mm3 (150-375); Red Blood Count 3.69 M/mm3 (4.2-5.4); White Blood Count 13.3 K/mm3 (4.5-10.0)
[2024-11-12] MEDS: VANCOMYCIN HCL 1,000 MG in SODIUM CHLORIDE 0.9% IV 250 ML 250 MG IVPB (06:50)
[2024-11-12 07:22] LABS: Anion Gap 5 mmol/L (4-12); Blood Urea Nitrogen 18 mg/dL (7-17); Calcium 8.6 mg/dL (8.4-10.2); Carbon Dioxide 27 mmol/L (22-30); Chloride 104 mmol/L (98-107); Estimated CRCL calculation 68 ml/min; Estimated Glomerular Filt Rate > 60; Glucose 107 mg/dL (65-110); Potassium 4.1 mmol/L (3.4-5.0); Sodium 136 mmol/L (137-145)
[2024-11-12 08:43] VITALS: BP 118/64; PULSE 70; RESP 16; TEMP 36.3; O2SAT 97
[2024-11-12] MEDS: CELECOXIB 200 MG CAPSULE PO (09:04)
[2024-11-12] MEDS: MONTELUKAST SODIUM 10 MG TABLET PO (09:04)
[2024-11-12] MEDS: FAMOTIDINE 20 MG TABLET PO (09:04)
[2024-11-12] MEDS: CEFDINIR 300 MG CAPSULE PO (09:04)
[2024-11-12] MEDS: DULoxetine HCL 60 MG CAPSULE.DR PO (09:04)
[2024-11-12] MEDS: SENNA/DOCUSATE SODIUM TABLET 2 TAB PO (09:05)
[2024-11-12] MEDS: APIXABAN 2.5 MG TABLET PO (09:05)
[2024-11-12] MEDS: ceFAZolin 2 GM in SODIUM CHLORIDE 0.9% IV 50 ML 100 ML IVPB (09:06)
--- NOTE | 2024-11-12 10:13 | P.PNOP_ITS ---
Progress Note: A&P Assessment and Plan (1) Status post total right knee replacement: Code(s): Z96.651 - Presence of right artificial knee joint Status: Acute Assessment and Plan: Patient is now postop day 1 after right total knee replacement yesterday. She is doing very well. Her pain is controlled. She has been up and around. Her hemoglobin today is 11.5. She has no significant swelling in the knee no swelling in the calf or ankle She has intact sensorimotor function in the right foot. The dressing is dry with no blood visible on the pad. She feels comfortable enough that she would like to go home later this morning after physical therapy. I reviewed precautions with her reminded her to avoid sitting in the chair but instead when she is resting lay back with her back flat with her leg elevated to minimize excessive swelling. She will focus on her stretching into flexion and extension as the primary goal. We will arrange for her to be discharged later today. Subjective Subjective Date/Time Seen: 11/12/24 10:13 Objective Data Vital Signs Vital Signs: Vital Signs - 24 hr 11/11/24 10:44 11/11/24 10:58 11/11/24 10:59 Temperature 36.4 C L 36.1 C L Pulse Rate 84 92 94 Respiratory Rate 13 14 14 Blood Pressure 130/78 130/62 133/72 Pulse Oximetry 95 96 98 Oxygen Delivery Simple Face Mask Simple Face Mask Oxygen Flow Rate 8 8 11/11/24 11:14 11/11/24 11:25 11/11/24 11:30 Temperature 36.8 C Pulse Rate 99 92 Respiratory Rate 12 12 Blood Pressure 123/61 142/70 H Pulse Oximetry 98 94 Oxygen Delivery Room Air Nasal Cannula Oxygen Flow Rate 2 11/11/24 11:43 11/11/24 11:45 11/11/24 11:53 Temperature 36.1 C L Pulse Rate 87 93 95 Respiratory Rate 14 12 14 Blood Pressure 120/68 112/90 131/75 Pulse Oximetry 96 94 96 Oxygen Delivery Nasal Cannula Nasal Cannula Oxygen Flow Rate 2 2 11/11/24 12:43 11/11/24 12:43 11/11/24 14:43 Temperature 36.1 C L Pulse Rate 99 90 Respiratory Rate 14 14 Blood Pressure 119/64 Pulse Oximetry 93 96 Oxygen Delivery Nasal Cannula Room Air Oxygen Flow Rate 2 11/11/24 15:08 11/11/24 16:43 11/11/24 19:59 Temperature 36.1 C L 36.6 C Pulse Rate 84 100 Respiratory Rate 14 20 Blood Pressure 120/60 120/68 Pulse Oximetry 96 94 Oxygen Delivery Room Air Oxygen Flow Rate 11/11/24 20:20 11/11/24 20:30 11/11/24 23:20 Temperature Pulse Rate Respiratory Rate 21 H Blood Pressure Pulse Oximetry 94 94 Oxygen Delivery Autopap Room Air CPAP Oxygen Flow Rate 11/12/24 00:24 11/12/24 04:22 11/12/24 08:43 Temperature 36.6 C 36.8 C 36.3 C L Pulse Rate 72 68 70 Respiratory Rate 20 20 16 Blood Pressure 104/53 L 136/81 118/64 Pulse Oximetry 97 97 97 Oxygen Delivery Oxygen Flow Rate Intake/Output Intake/Output: Intake & Output 11/09/24 11/10/24 11/11/24 11/12/24 23:59 23:59 23:59 23:59 Intake Total 2330 960 Balance 2330 960 Meds/Results Medications: Active Medications Generic Name Dose Route Start Last Admin Trade Name Freq PRN Reason Stop Dose Admin Acetaminophen 650 mg 11/11/24 12:00 11/12/24 09:05 Acetaminophen 325 Mg Tablet PO 650 mg Q4H MARIAMA Administration Amlodipine Besylate 10 mg 11/12/24 09:00 11/12/24 09:04 Amlodipine Besylate 10 Mg Tablet PO 10 mg QAM MARIAMA Administration Apixaban 2.5 mg 11/12/24 09:00 11/12/24 09:05 Apixaban 2.5 Mg Tablet PO 2.5 mg Q12HR MARIAMA Administration Cefdinir 300 mg 11/12/24 09:00 11/12/24 09:04 Cefdinir 300 Mg Capsule PO 300 mg Q12HR MARIAMA Administration Celecoxib 200 mg 11/12/24 08:00 11/12/24 09:04 Celecoxib 200 Mg Capsule PO 200 mg DAILY@0800 MARIAMA Administration Duloxetine HCl 60 mg 11/12/24 09:00 11/12/24 09:04 Duloxetine Hcl 60 Mg Capsule.Dr PO 60 mg QAM MARIAMA Administration Famotidine 20 mg 11/11/24 21:00 11/12/24 09:04 Famotidine 20 Mg Tablet PO 20 mg Q12HR MARIAMA Administration Ketorolac Tromethamine 7.5 mg 11/11/24 16:00 11/12/24 09:44 Ketorolac 15 Mg/Ml Vial (*Bkc) IV PUSH 7.5 mg Q6H MARIAMA Administration Montelukast Sodium 10 mg 11/12/24 09:00 11/12/24 09:04 Montelukast Sodium 10 Mg Tablet PO 10 mg DAILY MARIAMA Administration Morphine Sulfate 2 mg 11/11/24 10:55 Morphine Sulfate (*Crx) 2 Mg/Ml Inj IV PUSH Q1H PRN Pain Rated 7-10 Naloxone HCl 0.1 mg 11/11/24 10:57 Naloxone Hcl 0.4 Mg/Ml Vial IV PUSH Q2M PRN Opiate Reversal Ondansetron HCl 4 mg 11/11/24 10:57 Ondansetron Inj 4 Mg/2 Ml Vial IV PUSH Q4H PRN Nausea And Vomiting Oxycodone HCl 5 mg 11/11/24 10:55 11/12/24 06:45 Oxycodone Hcl (*Crx) 5 Mg Tab Ir PO 5 mg Q4H MARIAMA Administration Oxycodone HCl 5 mg 11/11/24 10:55 Oxycodone Hcl (*Crx) 5 Mg Tab Ir PO Q4H PRN Pain Rated 7-10 Polyethylene Glycol 17 gm 11/12/24 09:00 11/12/24 09:06 Polyethylene Glycol 3350 17 Gm Powd.Pack PO 17 gm QAM MARIAMA Administration Senna/Docusate Sodium 2 tab 11/11/24 17:00 11/12/24 09:05 Senna/Docusate Sodium Tablet PO 2 tab BID MARIAMA Administration Labs Labs: Laboratory Results - last 24 hr 11/12/24 06:12 WBC 13.3 H RBC 3.69 L Hgb 11.5 L Hct 36.0 L MCV 97.6 MCH 31.2 MCHC 31.9 L RDW 14.0 Plt Count 204 MPV 10.8 H Immature Gran % (Auto) 0.5 Neut % (Auto) 81.1 H Lymph % (Auto) 8.0 L [place] % (Auto) 10.0 H Eos % (Auto) 0.1 Baso % (Auto) 0.3 Lymph # (Auto) 1.06 [place] # (Auto) 1.3 H Eos # (Auto) 0.0 Baso # (Auto) 0.0 Abs Immat Gran (auto) 0.07 H Absolute Neuts (auto) 10.8 H Absolute Nucleated RBC 0.000 Nucleated RBC % 0.0 Sodium 136 L Potassium 4.1 Chloride 104 Carbon Dioxide 27 Anion Gap 5 BUN 18 H Creatinine 0.82 Estim Creat Clear Calc 68 Estimated GFR > 60 Glucose 107 Calcium 8.6
--- NOTE | 2024-11-12 13:11 | P.PNAN_ITS ---
Anes - Prog Note Post-Op Date/Time: 11/12/24 13:11 Cardiovascular status: normal Respiratory status: normal Airway patency: baseline Mental status: baseline Post-Op hydration status: normal Vital Signs: Last Vital Signs Temp 97.4 F L 11/12/24 08:43 Pulse 70 11/12/24 08:43 Resp 16 11/12/24 08:43 BP 118/64 11/12/24 08:43 Pulse Ox 97 11/12/24 08:43 O2 Del Method CPAP 11/11/24 23:20 O2 Flow Rate 2 11/11/24 12:43 Pain Score (VAS): 0/10 I/O: Intake & Output 11/11/24 11/12/24 11/12/24 23:59 07:59 15:59 Intake Total 780 600 360 Balance 780 600 360 Laboratory Tests 11/12/24 06:12 11/12/24 06:12 11/12/24 06:12 WBC 13.3 H RBC 3.69 L Hgb 11.5 L Hct 36.0 L MCV 97.6 MCH 31.2 MCHC 31.9 L RDW 14.0 Plt Count 204 MPV 10.8 H Immature Gran % (Auto) 0.5 Neut % (Auto) 81.1 H Lymph % (Auto) 8.0 L [place] % (Auto) 10.0 H Eos % (Auto) 0.1 Baso % (Auto) 0.3 Lymph # (Auto) 1.06 [place] # (Auto) 1.3 H Eos # (Auto) 0.0 Baso # (Auto) 0.0 Abs Immat Gran (auto) 0.07 H Absolute Neuts (auto) 10.8 H Absolute Nucleated RBC 0.000 Nucleated RBC % 0.0 Sodium 136 L Potassium 4.1 Chloride 104 Carbon Dioxide 27 Anion Gap 5 BUN 18 H Creatinine 0.82 Estim Creat Clear Calc 68 Estimated GFR > 60 Glucose 107 Calcium 8.6 Post-procedural complaints: none Patient Feedback: Patient satisfied with anesthetic care.
--- NOTE | 2024-11-12 13:59 | P.PNIM_ITS ---
Progress Note: A&P Assessment and Plan (1) Status post total right knee replacement: Code(s): Z96.651 - Presence of right artificial knee joint Status: Acute Assessment and Plan: - primary management the orthopedic team - use IS - neurovasc checks - see order for intervals - SCDs - analgesics and antiemetics p.r.n. -labs reviewed - bowel regimen: docusate/senna, polyethylene glycol - PT/OT (2) Hypertension: Qualifiers: Hypertension type: primary hypertension Qualified Code(s): I10 - Essential (primary) hypertension Code(s): I10 - Essential (primary) hypertension Status: Chronic Assessment and Plan: - home medications: continue amlodipine 10 mg daily, hold lisinopril 40 mg daily - monitor (3) Sleep apnea: Qualifiers: Sleep apnea type: unspecified type Qualified Code(s): G47.30 - Sleep apnea, unspecified Code(s): G47.30 - Sleep apnea, unspecified Status: Chronic Assessment and Plan: - continue home CPAP Plan Diet: Regular GI Prophylaxis: Famotidine p.o. DVT Prophylaxis: SCDs, Eliquis IV fluids: NS 125 mL/hour x8 hours Lines/Tubes: Peripheral IV Code Status: Full code Subjective Date/time seen: 11/12/24 13:59 Interval history: No overnight events. Work with therapy. Plan to discharge home today. Denies any chest pain or shortness of breath. Review of Systems Review of Systems: All systems reviewed & are unremarkable except as noted in HPI and below Exam Narrative: GENERAL: The patient is well developed, not in acute distress HEENT: Nonicteric sclerae, PERRLA, EOMI. Oropharynx clear. Moist mucous membranes. Conjunctivae appear well perfused. CHEST: Chest wall is nontender. HEART: Regular rate and rhythm without murmur, rubs, or gallops LUNGS: Clear to auscultation bilaterally. no respiratory distress ABDOMEN: Soft, positive bowel sounds, non-tender, no organomegaly. SKIN: No rash, no excessive bruising, petechiae, or purpura. NEUROLOGIC: Cranial nerves II-XII intact, alert and oriented x 3, no gross motor deficits EXTREMITIES: no edema, cyanosis or clubbing Right knee with surgical dressing in place which is clean dry and intact. Objective Data Vital Signs Vital Signs: Vital Signs - 24 hr 11/11/24 14:43 11/11/24 15:08 11/11/24 16:43 Temperature 97 F L Pulse Rate 84 Respiratory Rate 14 Blood Pressure 120/60 Pulse Oximetry 96 Oxygen Delivery Room Air Room Air 11/11/24 19:59 11/11/24 20:20 11/11/24 20:30 Temperature 97.9 F Pulse Rate 100 Respiratory Rate 20 21 H Blood Pressure 120/68 Pulse Oximetry 94 94 Oxygen Delivery Autopap Room Air 11/11/24 23:20 11/12/24 00:24 11/12/24 04:22 Temperature 97.8 F 98.3 F Pulse Rate 72 68 Respiratory Rate 20 20 Blood Pressure 104/53 L 136/81 Pulse Oximetry 94 97 97 Oxygen Delivery CPAP 11/12/24 08:43 Temperature 97.4 F L Pulse Rate 70 Respiratory Rate 16 Blood Pressure 118/64 Pulse Oximetry 97 Oxygen Delivery Intake/Output Intake/Output: Intake & Output 11/09/24 11/10/24 11/11/24 11/12/24 23:59 23:59 23:59 23:59 Intake Total 2330 1200 Balance 2330 1200 Meds/Results Medications: Active Medications Generic Name Dose Route Start Last Admin Trade Name Freq PRN Reason Stop Dose Admin Acetaminophen 650 mg 11/11/24 12:00 11/12/24 12:15 Acetaminophen 325 Mg Tablet PO 650 mg Q4H MARIAMA Administration Amlodipine Besylate 10 mg 11/12/24 09:00 11/12/24 09:04 Amlodipine Besylate 10 Mg Tablet PO 10 mg QAM MARIAMA Administration Apixaban 2.5 mg 11/12/24 09:00 11/12/24 09:05 Apixaban 2.5 Mg Tablet PO 2.5 mg Q12HR MARIAMA Administration Cefdinir 300 mg 11/12/24 09:00 11/12/24 09:04 Cefdinir 300 Mg Capsule PO 300 mg Q12HR MARIAMA Administration Celecoxib 200 mg 11/12/24 08:00 11/12/24 09:04 Celecoxib 200 Mg Capsule PO 200 mg DAILY@0800 MARIAMA Administration Duloxetine HCl 60 mg 11/12/24 09:00 11/12/24 09:04 Duloxetine Hcl 60 Mg Capsule.Dr PO 60 mg QAM MARIAMA Administration Famotidine 20 mg 11/11/24 21:00 11/12/24 09:04 Famotidine 20 Mg Tablet PO 20 mg Q12HR MARIAMA Administration Ketorolac Tromethamine 7.5 mg 11/11/24 16:00 11/12/24 09:44 Ketorolac 15 Mg/Ml Vial (*Bkc) IV PUSH 7.5 mg Q6H MARIAMA Administration Montelukast Sodium 10 mg 11/12/24 09:00 11/12/24 09:04 Montelukast Sodium 10 Mg Tablet PO 10 mg DAILY MARIAMA Administration Morphine Sulfate 2 mg 11/11/24 10:55 Morphine Sulfate (*Crx) 2 Mg/Ml Inj IV PUSH Q1H PRN Pain Rated 7-10 Naloxone HCl 0.1 mg 11/11/24 10:57 Naloxone Hcl 0.4 Mg/Ml Vial IV PUSH Q2M PRN Opiate Reversal Ondansetron HCl 4 mg 11/11/24 10:57 Ondansetron Inj 4 Mg/2 Ml Vial IV PUSH Q4H PRN Nausea And Vomiting Oxycodone HCl 5 mg 11/11/24 10:55 11/12/24 11:06 Oxycodone Hcl (*Crx) 5 Mg Tab Ir PO 5 mg Q4H MARIAMA Administration Oxycodone HCl 5 mg 11/11/24 10:55 Oxycodone Hcl (*Crx) 5 Mg Tab Ir PO Q4H PRN Pain Rated 7-10 Polyethylene Glycol 17 gm 11/12/24 09:00 11/12/24 09:06 Polyethylene Glycol 3350 17 Gm Powd.Pack PO 17 gm QAM MARIAMA Administration Senna/Docusate Sodium 2 tab 11/11/24 17:00 11/12/24 09:05 Senna/Docusate Sodium Tablet PO 2 tab BID MARIAMA Administration Labs Labs: Laboratory Results - last 24 hr 11/12/24 06:12 WBC 13.3 H RBC 3.69 L Hgb 11.5 L Hct 36.0 L MCV 97.6 MCH 31.2 MCHC 31.9 L RDW 14.0 Plt Count 204 MPV 10.8 H Immature Gran % (Auto) 0.5 Neut % (Auto) 81.1 H Lymph % (Auto) 8.0 L [place] % (Auto) 10.0 H Eos % (Auto) 0.1 Baso % (Auto) 0.3 Lymph # (Auto) 1.06 [place] # (Auto) 1.3 H Eos # (Auto) 0.0 Baso # (Auto) 0.0 Abs Immat Gran (auto) 0.07 H Absolute Neuts (auto) 10.8 H Absolute Nucleated RBC 0.000 Nucleated RBC % 0.0 Sodium 136 L Potassium 4.1 Chloride 104 Carbon Dioxide 27 Anion Gap 5 BUN 18 H Creatinine 0.82 Estim Creat Clear Calc 68 Estimated GFR > 60 Glucose 107 Calcium 8.6
== END 2024-11-12 13:40 | disposition home or self-care (01) ==
LOC: ANHSURGERY 06:07 → ANH3MEDSUR 12:03
PROVIDERS: PCP Internal Medicine; Visit Provider Orthopaedic Surgery
PROC: (CPT 27447; principal; 2024-11-11 07:30)
DX: M17.11 Unilateral primary osteoarthritis, right knee (principal); I10 Essential (primary) hypertension; G47.30 Sleep apnea, unspecified; E66.9 Obesity, unspecified; Z68.37 Body mass index [BMI] 37.0-37.9, adult
CPT/HCPCS: 27447; 36415; 73560; 80048; 85025; 86850; 86900; 86901; 97110; 97116; 97161; 97165; 97530; 97535; J0690; A9270; C1713; C1776; J0166; J1100; J1171; J1885; J2003; J2270; J2405; J2704; J2795; J3010; J3373; J7030; J7050; J7120

== ENCOUNTER 2024-11-19 11:20 | Emergency (ER) | payer MEDICARE, SELFPAY ==
[2024-11-19 11:23] VITALS: BP 122/80; PULSE 77; RESP 18; TEMP 36.6; O2SAT 99
--- OUTSIDE RECORDS SUMMARY | 2024-11-19 13:14 | XMS_ITS | Encounter Summary ---
Author Organization [facility] Address [address] [place] [address] Phone Care Team Providers Care Continuous Pillowcase Cutter Name Role Phone Johnny Decker MD Primary Care Provider [phone] Reason for Visit * Reason Onset Date Comments Labs Only 10/15/2024 Encounter Details Date Type Department Care Team (Late st Contact Info) Description 10/15/2024 Telephone [facility] [address] [place] [address] Johnny Decker MD [address] [place] [address] Labs Only Social History Tobacco Use Types Packs/Day Years Used Date Smoking Tobacco: Never Passive Smoke Exposure: Never Smokeless Tobacco: Never Alcohol Use Standard Drinks/Week Comments Not Currently 0 (1 standard drink = 0.6 oz pur e alcohol) [facility] Utilities Answer Date Recorded In the past 12 months has [employer] electric, gas, oil, or water company threatened [...] week 04/10/2024 How often do you attend [facility] or gnosticism services? Patient declined 04/10/2024 Do you belong to any clubs o r organizations such as pentecostalism groups, unions, fraternal or athletic groups, or [...] Total Score - Questions 1-9 0 05/2024 [facility] - [...] were you homeless or living in a fpc (including now)? No 04/10/2024 Education Answer Date [...] with patient that labs were drawn at [facility] [[email or web address] Recommendation: Patient confirmed labs were drawn at [facility] [[email or web address] Encounter routed to [facility] to notify. documented in this encounter Plan of Treatment Upcoming Encounters Date Type Department Care Team (Late st Contact Info) Description 04/18/2025 8:00 AM SOCIAL WORK MANAGER Office Visit [facility] - Primary Care - [place] [address] [place] [phone] Johnny Decker MD [address] [place] [address] documented as of this encounter Visit Diagnoses Not on filedocumented in this encounter Additional Health Concerns Assessment Noted Time PHQ-9 Depression Total Score: 0 04/12/19 25 9:45 AM SOCIAL WORK MANAGER documented as of this encounter Care Teams Continuous Pillowcase Cutter Relationship Specialty Start Date End Date Johnny Decker MD PCP - General Internal Medicine 10/11/19 documented as of this encounter
--- OUTSIDE RECORDS SUMMARY | 2024-11-19 13:14 | XMS_ITS | Encounter Summary ---
Author Organization [facility] Address [address] [place] [address] Phone Care Team Providers Care Glass Washer And Carrier Name Role Phone Johnny Decker MD Primary Care Provider [phone] Reason for Visit * Reason Comments Medication Refill Encounter Details Date Type Department Care Team (Late st Contact Info) Description 09/23/2022 Refill [facility] - Internal Medicine - [place] [address] [place] [address] Johnny Decker MD [address] [place] [address] Medication Refill Social History Tobacco [...] [place] 01/28/22 Office Visit Johnny Decker MD [facility] Showing recent visits within past 365 days and meeting all other requirements Future Appointments No visits were found meeting these conditions. Showing future appointments within next 90 days and meeting all other requirements documented in this encounter Plan of Treatment Upcoming Encounters Date Type Department Care Team (Late st Contact Info) Description 04/18/2025 8:00 AM PALLIATIVE CARE SPECIALIST Office Visit [facility] - Primary Care - [place] [address] [place] [phone] Johnny Decker MD [address] [place] [address] documented as of this encounter Visit Diagnoses Not on filedocumented in this encounter Additional Health Concerns Assessment Noted Time PHQ-9 Depression Total Score: 0 07/24/19 11:00 AM CDT documented as of this encounter Care Teams Glass Washer And Carrier Relationship Specialty Start Date End Date Decker, Johnny K, MD PCP - General Internal Medicine 10/11/19 documented as of this encounter
--- OUTSIDE RECORDS SUMMARY | 2024-11-19 13:14 | XMS_ITS | Encounter Summary ---
Author Organization [facility] Address [address] [place] [address] Phone Care Team Providers Care Side Guider Name Role Phone Johnny Decker MD Primary Care Provider [phone] Reason for Visit * Reason Comments Medication Refill Encounter Details Date Type Department Care Team (Late st Contact Info) Description 06/05/2023 Refill [facility] - Internal Medicine - [place] [address] [place] [address] Johnny Decker MD [address] [place] [address] Medication Refill Social History Tobacco [...] Office Visit Johnny Decker MD [facility] [place] 07/23/22 Office Visit Johnny Decker MD [facility] [place] Showing recent visits within past 365 days and meeting all other requirements Future Appointments Date Type Provider Dept 07/24/23 Appointment Johnny Decker MD [facility] [place] Showing future appointments within next 90 days and meeting all other requirements documented in this encounter Plan of Treatment Upcoming Encounters Date Type Department Care Team (Late st Contact Info) Description 04/18/2025 8:00 AM SILVICULTURE FORESTER Office Visit [facility] - Primary Care - [place] [address] [place] [address] Johnny Decker MD [address] [place] [address] documented as of this encounter Visit Diagnoses Not on filedocumented in this encounter Additional Health Concerns Assessment Noted Time PHQ-9 Depression Total Score: 0 01/24/20 23 7:59 AM SILVICULTURE FORESTER documented as of this encounter Care Teams Side Guider Relationship Specialty Start Date End Date Johnny Decker MD PCP - General Internal Medicine 10/11/19 documented as of this encounter
--- OUTSIDE RECORDS SUMMARY | 2024-11-19 13:15 | XMS_ITS | Encounter Summary ---
Author Organization [facility] Address [address] [place] [address] Phone Care Team Providers Care Department Mgr Name Role Phone Johnny Decker MD Primary Care Provider [phone] Encounter Details Date Type Department Care Team (Late st Contact Info) Description 11/05/2024 Results Follow-Up [facility] - Primary Care - [place] [address] [place] [address] Wanda Rossi PAC [address] [place] [address] CMP (COMPREHENSIVE METABOLIC PANEL), LIPID PANEL Social History Tobacco Use Types Packs/Day Years Used Date Smoking Tobacco: Never Passive Smoke Exposure: Never Smokeless Tobacco: Never Alcohol Use Standard Drinks/Week Comments Not Currently 0 (1 standard drink = 0.6 oz pur e alcohol) [facility] Utilities Answer Date Recorded In the past 12 months has [employer] electric, gas, oil, or water company threatened [...] week 04/10/2024 How often do you attend [facility] or religion services? Patient declined 04/10/2024 Do you belong [...] Total Score - Questions 1-9 0 05/2024 [facility] - Occupational Stress [...] st Contact Info) Description 04/18/2025 8:00 AM FRONT DESK RECEPTIONIST Office Visit [facility] - Primary Care - [place] [address] [place] [address] Johnny Decker MD [address] [place] [address] documented as of this encounter Visit Diagnoses Not on filedocumented in this encounter Additional Health Concerns Assessment Noted Time PHQ-9 Depression Total Score: 0 04/12/19 25 9:45 AM FRONT DESK RECEPTIONIST documented as of this encounter Care Teams Department Mgr Relationship Specialty Start Date End Date Johnny Decker MD PCP - General Internal Medicine 10/11/19 documented as of this encounter
--- OUTSIDE RECORDS SUMMARY | 2024-11-19 13:15 | XMS_ITS | Encounter Summary ---
Author Organization [facility] Address [address] [place] [address] Phone Care Team Providers Care Muleser Name Role Phone Johnny Decker MD Primary Care Provider [phone] Reason for Visit * Reason Comments Medication Refill Encounter Details Date Type Department Care Team (Late st Contact Info) Description 02/27/2020 Refill [facility] - Internal Medicine - [place] [address] [place] [phone] Johnny Decker MD [address] [place] [address] Medication Refill Social History Tobacco [...] 8:55 AM CST Please review and sign. ICATIONS WRITER documented in this encounter Plan of Treatment Upcoming Encounters Date Type Department Care Team (Late st Contact Info) Description 04/18/2025 8:00 AM PUBLICATIONS WRITER Office Visit [facility] - Primary Care - [place] [address] [place] [phone] Johnny Decker MD [address] [place] [address] documented as of this encounter Visit Diagnoses Not on filedocumented in this encounter Care Teams Muleser Relationship Specialty Start Date End Date Johnny Decker MD PCP - General Internal Medicine 10/11/19 documented as of this encounter
--- OUTSIDE RECORDS SUMMARY | 2024-11-19 13:15 | XMS_ITS | Clinical Summary ---
Author Organization [facility] [place] Address [address] [place] [address] Phone Care Team Providers Care All Terrain Vehicle Racer Name Role Phone Johnny Decker MD Primary Care Provider Allergies Active Allergy Reactions Criticality Noted Date Comments Amoxicillin-Pot Clavulanate Rash 09/04/2023 Rosuvastatin Calcium Other (see Comments) 12/24 Reaction: severe muscle cramps Nylon Unknown 07/01/2016 fabric Pravastatin Other (see Comments) 06/25/2016 Reaction: muscle pain Medications amLODIPine (NORVASC) 10 MG Tablet TAKE 1 TABLET BY MOUTH DAILY 90 Tablet 3 5 Active montelukast (SINGULAIR) 10 MG Tablet TAKE 1 TABLET BY MOUTH DAILY 90 Tablet 3 5 Active DULoxetine (CYMBALTA) [address] Particles TAKE 1 CAPSULE BY MOUTH DAILY 90 Capsule 3 5 Active lisinopril (PRINIVIL, ZESTRIL) 40 MG Tablet TAKE 1 TABLET BY MOUTH DAILY 90 Tablet 1 5 Active lisinopril (PRINIVIL, ZESTRIL) 40 MG Tablet TAKE 1 TABLET BY MOUTH DAILY 90 Tablet 3 4 11/16/19 25 Discontinued Active Problems Problem Noted Date Diagnosed Date Skipped heart beats 09/04/2023 Morbid obesity 09/04/2023 Mild intermittent asthma without complication JERALD (obstructive sleep apnea) 11/28/2010 Essential (primary) hypertension 06/06/2010 Other hyperlipidemia 06/06/2010 Dysthymia 06/06/2010 Encounters Date Type Department Care Team Description 11/14/2024 Refill [facility] [place] [address] [place] [address] Wanda Rossi, PAC Medication Refill 11/05/2024 Results Follow-Up [address] [phone] Wanda Rossi, PAC CMP (COMPREHENSIVE METABOLIC PANEL), LIPID PANEL 10/26/[address] [phone] Johnny Decker MD Form Completion 10/15/2024 8:00 AM CDT Office Visit [address] [phone] Johnny eDcker MD Pre-op evaluation (Primary Dx); Primary osteoarthritis of right knee; Essential (primary) hypertension; Other hyperlipidemia; Mild intermittent asthma without complication Discharge Disposition: Discharged to home or Selfcare 10/15/2024 Telephone [facility] [address] [place] [phone] Johnny Decker MD Labs Only 10/15/2024 Travel from Last 3 Months Immunizations Immunization Administration Dates Next Due Covid-19, Mrna, Lnp-s, Pf, 30 Mcg/0.3 Ml Dose (P fizer) 05/25/2020,05/02/2020 Influenza Vaccine greater than 3 yrs 12/23/2017 Influenza Vaccine, Quadrivalent, PF 01/26/2024,1 03/25/2020 Influenza, Quadrivalent, Adjuvanted 01/23/2023 Pneumococcal Vaccine - 13 Valent 01/23/2024,01/08 Pneumococcal conjugate PCV20 , polysaccharide [id number] conjugate, adjuvant, PF 01/28/2022 Family History Relation Name Status Comments Brother 1 Brother 2 Father Mother Social History Tobacco Use Types Packs/Day Years Used Date Smoking Tobacco: Never Passive Smoke Exposure: Never Smokeless Tobacco: Never Tobacco Cessation:Counseling Given: No Alcohol Use Standard Drinks/Week Comments Not Currently 0 (1 standard drink = 0.6 oz pur e alcohol) [facility] Utilities Answer Date Recorded In the past 12 months has e electric, gas, oil, or water company [...] 04/10/2024 How often do you attend chur ch or rastafari services? Patient declined 04/10/2024 Do you belong to any clubs o r organizations such as restorationism groups, unions, fraternal or athletic groups, or [...] Total Score - Questions 1-9 0 05/2024 [facility] - Occupational Stress [...] any time in the past 12 m [facility], were you homeless or living in a senior care (including now)? No 04/10/2024 Education Answer Date [...] 170.2 cm (5' 7) 04/12/2024 9:43 AM PRODUCT SUPPORT MANAGER Body Mass Index 37.9 04/12/2024 9:43 AM PRODUCT SUPPORT MANAGER Plan of Treatment Upcoming Encounters Date Type Department Care Team (Late st Contact Info) Description 04/18/2025 8:00 AM PRODUCT SUPPORT MANAGER Office Visit [facility] [place] [address] [place] [phone] Johnny Decker MD [address] [place] [address] Health Maintenance Due Date Last Done Comments DEXA Bone Density 1950 Hepatitis C Virus (HCV) Screening 1950 TdaP Immunization 1950 Cologuard 10/07/1996 Colonoscopy 10/07/1996 Immunochemical Fecal Occult Blood 10/07/1996 Respiratory Syncytial Virus (RSV) Immunization (Adult) (1 - Risk 60-74 years 1-dose series) 2011 Mammogram 08/08/2022 08/08/2021, 07/23/2010 Influenza Immunization (#1) 11/08/202401/08, 01/23/2023, 11/19/2021, Additional history exists SARS-COV-2 Immunization ( season) 2024 07/12/2022, 11/19/2021, 06/25/2021, Additional history [...] CHOLESTEROL 48 SCAN LDL 113 SCAN Blood Johnny Decker MD CHEMISTRY ORDERABLES Final Result SCAN * CMP (COMPREHENSIVE METABOLIC PANEL) (2024 12:00 AM CDT) Blood us Johnny Decker MD CHEMISTRY ORDERABLES Final Result SCAN * ORTHOPEDIC SURGERY CONSULT (10/06/2024 12:00 AM CDT) 10/06/2024 us Provider Scan GENERIC SCAN ORDERS CONSULT Princess viry Result SCAN * JULEE SCREENING BILATERAL DIGITAL [...] Comparison is made to exam dated: 07/23/2010 [facility]. BREAST TISSUE:There are scattered fibroglandular densities in [...] exam. Electronically signed by: Bridger martines/keo:08/08/2021 16:12:28 Test Worker(s): Shila Ortiz)(M), [facility] letter sent: Normal Exam Reading location: [facility] BI-RADS: 1 Negative Procedure Note Bridger Lopez [...] Comparison is made to exam dated: 07/23/2010 [facility]. BREAST TISSUE:There are scattered fibroglandular densities in [...] next screening exam. Electronically signed by: Bridger Lopez M.D. ll/keo:08/08/2021 16:12:28 Test Worker(s): Shila Ortiz)([place]), [facility] letter sent: Normal Exam Reading location: [facility] BI-RADS: 1 Negative Johnny Decker MD IMG MAMMO ORDERABLES Final Result from Last 3 Months or Most Recently Relevant to Health Maintenance Insurance MEDICARE C [facility] Care Teams All Terrain Vehicle Racer Relationship Specialty Start Date End Date Johnny Decker MD PCP - General Internal Medicine 10/11/19
[2024-11-19] MEDS: dexAMETHasone SOD PHOS INJ 10 MG/ML 1 ML VIAL IV PUSH (13:38)
[2024-11-19 13:41] LABS: Hematocrit 39.6 % (37.0-47.0); Hemoglobin 12.6 g/dL (12.0-15.0); Immature Granulocyte Percent A 0.9 % (0-0.5); Lymphocytes Absolute Auto 1.54 K/mm3 (0.9-3.2); Mean Corpuscular HGB Conc 31.8 g/dl (32-36); Mean Corpuscular Hemoglobin 30.4 pg (26-34); Mean Corpuscular Volume 95.4 fl (80-100); Nucleated Red Blood Cells Absolute Auto 0.000 K/mm3 (0.0-0.012); Nucleated Red Blood Cells Perc 0.0 % (0.0-0.2); Platelet Count Result 336 k/mm3 (150-375); Red Blood Count 4.15 M/mm3 (4.2-5.4); White Blood Count 9.9 K/mm3 (4.5-10.0)
[2024-11-19 13:52] LABS: Alanine Aminotransferase 21 U/L (6-35); Albumin Level 3.6 g/dL (3.5-5.1); Alkaline Phosphatase 61 U/L (38-126); Anion Gap 6 mmol/L (4-12); Aspartate Amino Transferase 27 U/L (14-36); Bilirubin,Total 0.8 mg/dL (0.2-1.3); Blood Urea Nitrogen 19 mg/dL (7-17); CRP 2.6 mg/dL (<1.0); Calcium 9.3 mg/dL (8.4-10.2); Carbon Dioxide 29 mmol/L (22-30); Chloride 101 mmol/L (98-107); Estimated CRCL calculation 62 ml/min; Estimated Glomerular Filt Rate > 60; Glucose 98 mg/dL (65-110); Potassium 4.8 mmol/L (3.4-5.0); Sodium 136 mmol/L (137-145); Total Protein 7.1 g/dL (6.3-8.2)
--- NOTE | 2024-11-19 14:02 | ED.GENADULT ---
HPI - General Adult General Chief complaint: Recheck/Abnormal Lab/Rx Stated complaint: wound check Time Seen by Provider: 11/19/24 12:04 History of Present Illness HPI narrative: Patient is a 74-year-old female who presents to the ER for wound check. She has been having itching and redness and weeping from her right knee surgical site the last few days. Was sent here after joint to therapy and taking the bandage off. No fevers or chills or sweats. No fatigue. Still has some limited range of motion due to her surgery. Related Data Home Medications ?Medication ?Instructions ?Recorded ?Confirmed ?Last Taken ?Type amlodipine 10 mg tablet 10 mg PO DIRECTED 06/20/23 11/11/24 11/11/24 History duloxetine 60 mg capsule,delayed 60 mg PO DIRECTED 06/20/23 11/11/24 11/11/24 History release lisinopril 40 mg tablet 40 mg PO DIRECTED 06/20/23 11/11/24 11/10/24 History montelukast 10 mg tablet 10 mg PO DAILY 07/09/23 11/11/24 11/10/24 History Allergies Allergy/AdvReac Type Severity Reaction Status Date / Time amoxicillin AdvReac Intermediate Rash Verified 11/19/24 11:26 clavulanic acid AdvReac Intermediate Rash Verified 11/19/24 11:26 [facility] Past Medical History Medical History (Updated 11/19/24 @ 14:04 by Higinio Solares MD) Sleep apnea Depression Asthma Hypertension Surgical History Surgical History (Updated 11/11/24 @ 17:04 by Stephenie Rodríguez APRN) History of total left knee replacement Status post total right knee replacement History of hysterectomy Family History Family History Sibling Heart disease Acute myocardial infarction Alcoholism Cancer Father Heart disease Mother , NATURAL CAUSES No problems noted. Social History Social History Smoking status: Never smoker Second hand tobacco smoke exposure: No Additional smoking assessment comments: DENIES ANY FORM OF TOBACCO USE Alcohol intake: current Drinks per week: 1 Substance use: never Substance use type: does not use Lack of Transportation: No Lack of Food: Never True Current Housing: Decline to Answer Concerned About Future Housing: Decline to Answer Difficulty Paying Gas/Electric Bills: Decline to Answer Difficulty Paying for Meds: Decline to Answer Currently Unemployed: Decline to Answer Education: Trade/Vocational Certificate Difficulty w/ Childcare or Family Care: Decline to Answer Living arrangements: with family Occupation/Education: retired 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 HEAD: Normocephalic, atraumatic. ENT: Mucous membranes moist. CHEST: Clear to auscultation. No respiratory distress. HEART: Regular rate and rhythm. No murmur heard. Normal peripheral pulses. EXTREMITIES: Normal range of motion. Right knee with erythema over his surgical site with weeping vesicles. No purulence. Mild warmth. Bruising inferior aspect. SKIN: Warm, dry, no rash. NEURO: Alert and oriented x3. PSYCH: Normal mood and affect. Course Course Emergency Course: 1402: Orthopedic surgery has been to the bedside to evaluate the patient. They have remove some sutures. 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 Patient will be started on doxycycline as well as a Medrol Dosepak at the recommendation. CRP not concerning for infection neither is the white blood cell count. Patient verbalized understanding treatment plan. Vital Signs Vital signs: Vital Signs Temperature 97.9 F 11/19/24 11:23 Pulse Rate 77 11/19/24 11:23 Respiratory Rate 18 11/19/24 11:23 Blood Pressure 122/80 11/19/24 11:23 Pulse Oximetry 99 11/19/24 11:23 Oxygen Delivery Room Air 11/19/24 11:23 Temperature 97.9 F 11/19/24 11:23 Pulse Rate 77 11/19/24 11:23 Respiratory Rate 18 11/19/24 11:23 Blood Pressure 122/80 11/19/24 11:23 Pulse Oximetry 99 11/19/24 11:23 Oxygen Delivery Room Air 11/19/24 11:23 Medical Decision Making Vital Signs Vital Signs: Vital Signs Temperature 97.9 F 11/19/24 11:23 Pulse Rate 77 11/19/24 11:23 Respiratory Rate 18 11/19/24 11:23 Blood Pressure 122/80 11/19/24 11:23 Pulse Oximetry 99 11/19/24 11:23 Oxygen Delivery Room Air 11/19/24 11:23 Temperature 97.9 F 11/19/24 11:23 Pulse Rate 77 11/19/24 11:23 Respiratory Rate 18 11/19/24 11:23 Blood Pressure 122/80 11/19/24 11:23 Pulse Oximetry 99 11/19/24 11:23 Oxygen Delivery Room Air 11/19/24 11:23 Lab Data 11/19/24 13:30 11/19/24 13:29 Labs: Lab Results 11/19/24 11/19/24 11/19/24 Range/Units 13:29 13:29 13:30 WBC 9.9 (4.5-10.0) K/mm3 RBC 4.15 L (4.2-5.4) M/mm3 Hgb 12.6 (12.0-15.0) g/dL Hct 39.6 (37.0-47.0) % MCV 95.4 (80-100) fl MCH 30.4 (26-34) pg MCHC 31.8 L (32-36) g/dl RDW 14.1 (11.5-14.5) % Plt Count 336 D (150-375) k/mm3 MPV 9.6 (7.4-10.4) fl Immature Gran % (Auto) 0.9 H (0-0.5) % Neut % (Auto) 66.4 (45.5-73.1) % Lymph % (Auto) 15.5 L (18.3-44.2) % Nicholas % (Auto) 9.4 H (2.6-8.5) % Eos % (Auto) 6.8 H (0-4.4) % Baso % (Auto) 1.0 (0.2-1.2) % Lymph # (Auto) 1.54 (0.9-3.2) K/mm3 Nicholas # (Auto) 0.9 H (0.1-0.6) K/mm3 Eos # (Auto) 0.7 H (0-0.3) K/mm3 Baso # (Auto) 0.1 (0.0-0.1) K/mm3 Abs Immat Gran (auto) 0.09 H (0.00-0.031) K/mm3 Absolute Neuts (auto) 6.6 (1.3-6.7) K/mm3 Absolute Nucleated RBC 0.000 (0.0-0.012) K/mm3 Nucleated RBC % 0.0 (0.0-0.2) % ESR Pending Sodium 136 L (137-145) mmol/L Potassium 4.8 (3.4-5.0) mmol/L Chloride 101 (98-107) mmol/L Carbon Dioxide 29 (22-30) mmol/L Anion Gap 6 (4-12) mmol/L BUN 19 H (7-17) mg/dL Creatinine 0.91 (0.7-1.0) mg/dL Estim Creat Clear Calc 62 ml/min Estimated GFR > 60 (59 - ) Glucose 98 (65-110) mg/dL Calcium 9.3 (8.4-10.2) mg/dL Total Bilirubin 0.8 (0.2-1.3) mg/dL AST 27 (14-36) U/L ALT 21 (6-35) U/L Alkaline Phosphatase 61 (38-126) U/L C-Reactive Protein 2.6 H Cancelled (<1.0) mg/dL Total Protein 7.1 (6.3-8.2) g/dL Albumin 3.6 (3.5-5.1) g/dL Discharge Plan Discharge Clinical Impression: Contact dermatitis Patient Disposition: Home Condition: Stable Instructions: Contact Dermatitis (ED) Additional Instructions: Return ER if you have fever over 100.4? F, you cannot keep down food water, you lose consciousness, or you have additional concerns. Patient Language: Gambian Prescriptions: New methylprednisolone [Medrol (Tom)] 4 mg tablets,dose pack See Rx Instructions .ROUTE .COMPLEX Qty: 21 0RF Rx Instructions: for 6 days doxycycline hyclate 100 mg tablet 100 mg PO BID Qty: 20 0RF No Action amlodipine 10 mg tablet 10 mg PO DIRECTED lisinopril 40 mg tablet 40 mg PO DIRECTED duloxetine 60 mg capsule,delayed release(DR/EC) 60 mg PO DIRECTED montelukast 10 mg tablet 10 mg PO DAILY acetaminophen 325 mg Tablet 650 mg PO Q4H Qty: 120 0RF celecoxib [Celebrex] 200 mg Capsule 200 mg PO DAILY@0800 Qty: 30 0RF sennosides-docusate sodium [Senokot-S] 8.6-50 mg Tablet 2 tab-cap PO BID Qty: 120 0RF cefdinir 300 mg Capsule 300 mg PO Q12HR Qty: 14 0RF Eliquis 2.5 mg Tablet 2.5 mg PO Q12HR Qty: 28 0RF polyethylene glycol 3350 [Miralax] 17 gram Powder In Packet 17 g PO QAM Qty: 30 0RF oxycodone 5 mg Tablet 5 mg PO Q4H PRN (Reason: Pain Rated 7-10) Qty: 40 0RF Follow-up/Referrals: Jeronimo,Johnny Boss MD [Primary Care Provider, Unknown] Thien Jama MD [Physician, Orthopedics] - 1 Week
[2024-11-19] MEDS: DOXYCYCLINE HYCLATE 100 MG TABLET PO (14:23)
[2024-11-19 14:30] VITALS: BP 118/61; PULSE 70; RESP 16; O2SAT 98
== END 2024-11-19 14:30 | disposition home or self-care (01) ==
PROVIDERS: Emergency Provider Emergency Medicine; PCP Internal Medicine
DX: L25.9 Unspecified contact dermatitis, unspecified cause (principal); I10 Essential (primary) hypertension; Z98.890 Other specified postprocedural states
CPT/HCPCS: 36415; 80053; 85025; 85652; 86140; 87070; 87186; 87205; 96374; 96375; 99284; A9270; J1100; J1200

== ENCOUNTER 2024-12-23 14:30 | Outpatient (RCR) | payer MEDICARE, SELFPAY ==
--- NOTE | 2024-11-15 11:01 | OPREHPOC ---
Outpatient Therapy Plan of Care This is a Multidisciplinary Plan of Care that may contain components documented by all disciplines (PT, OT, and ST.) PT Problem 1 PT Problem #1 Knowledge Deficit PT Goal 1 Goal / Goal Update 1. Patient to demonstrate independence with home exercise program for improved self-reliance of symptom management Target Visit 4 PT Problem 2 PT Problem #2 Pain PT Goal 1 Goal / Goal Update 1. Patient to decrease subjective reports of pain to <3/10 for improved ADL tolerance. 2. Pt will increase LEFS score by at least 9 points in order to demonstrate the minimal clinically important difference (MCID) in functional improvement. Target Visit 12 PT Problem 3 PT Problem #3 Impaired Range of Motion PT Goal 1 Goal / Goal Update 1. Patient to demonstrate an increase of R knee AROM of 0-120 deg to improve mobility required for gait/stair negotiation. Target Visit 12 PT Problem 4 PT Problem #4 Impaired Functional Mobility PT Goal 1 Goal / Goal Update 1. Patient to improve gait mechanics and stair negotiation to no noted deficit and reciprocal pattern for improved community navigation. 2. Pt will demonstrate ability to perform 5 consecutive SLR with no extension lag to show adequate quadricep strength for gait stability 3. Patient to demonstrate RLE strength >=4+/5 for improved functional stability required for ADLs. Target Visit 12
--- NOTE | 2024-11-15 11:01 | PTOPEVAL1 ---
Assessment and note entered by Richard Villela PT Evaluation Information Assessment Status Evaluation Diagnosis R TKA ICD-10 Condition Codes (PT) Pain in right knee M25.561,Aftercare following joint replacement surgery Z47.1 Onset 11-11-24 Subjective Information Pt had R TKA on 11-11-[address] Jama. Pt reports she has been taking easy and sleeping a lot but she has been stretching every hour when she is awake. Pt is currently walking with a front wheeled walker but walked with no device prior to surgery. Pt states she is independent with ADLs but does currently struggle with getting dressed due to pain and limited motion. 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 Reported Pain Level Pain Score 8: Self Report Assessment PT Clinical Summary Patient presents to physical therapy following a R TKA on 11-11-[address] Jama .Patient demonstrates post surgical RLE weakness, pain, decreased mobility, gait deficit, and decreased flexibility that limit their ability to perform activities of daily living and functional movements. Patient will benefit from skilled physical therapy to address the above listed deficits and return to prior level of function. Home exercise program instructed and written handout provided, exercises tolerated well with no adverse effects to note post-session. Patient was educated on importance of adherence to home exercise program. Patient was also educated on anatomy, prognosis, home modalities, and plan of care. Plan of Care Interventions Electrical Stimulation,Gait Training,Hot Pack/Cold Pack,Manual Therapy,Neuro Re-education, Therapeutic Activities,Therapeutic Exercise,Other PT Services Indicated Yes Treatment Frequency and 2x week 12 visits Duration These treatments will address the objective and functional deficits as defined above. The patient will be advanced safely and appropriately in order for the patient to progress towards his/her prior level of function. Additional exercises will be introduced and as well as a comprehensive home exercise program upon discharge, if needed, ?to ensure carryover of functional gains achieved in the clinic. This treatment plan has been reviewed and agreement upon by the patient.
--- NOTE | 2024-11-19 11:09 | PCPTNOTE ---
called MD office regarding pt surgical incision irritation, pt instructed to present to the ED for physician evaluation
--- NOTE | 2024-11-25 10:00 | PCPTNOTE ---
pt cancelled todays session, going back to MD to see where to go from here after glue allergy and ED visit
--- NOTE | 2024-12-23 15:08 | PTOPDC ---
Assessment and note entered by Richard Villela, PT Evaluation Information Assessment Status Discharge Diagnosis R TKA ICD-10 Condition Codes (PT) Pain in right knee M25.561,Aftercare following joint replacement surgery Z47.1 Onset 11-11-24 Subjective Information Pt reports she has low pain levels and feels she is recovering well. She reports some remaining difficulty rising from a low chair but has no other concerns. She reports she meet with her orthopedic surgeon and he was pleased with her progress and does not have any follow ups for a year. Reported Pain Level Pain Score 1: Self Report Assessment PT Clinical Summary Patient's R knee has improved overall as evidenced by decrease in symptomss increased mobility, strength, and overall functional use of the RLE. Patient has met therapy goals and is pleased with progress made towards the remaining goals. Patient to discharge from physical therapy this date and continue with updated home exercise program as instructed. Patient to contact physical therapist or primary care provider if questions or concerns arise. Plan of Care PT Services Indicated No
== END 2024-12-24 14:40 | disposition home or self-care (01) ==
LOC: ANHGOSHPT 14:30
PROVIDERS: PCP Internal Medicine; Visit Provider Orthopaedic Surgery
DX: Z47.1 Aftercare following joint replacement surgery (principal); M17.11 Unilateral primary osteoarthritis, right knee; Z96.651 Presence of right artificial knee joint
CPT/HCPCS: 97110; 97112; 97161; 97530